=== PATIENT | male | born 1980 | race Caucasian/White ===

== ENCOUNTER → 2018-08-11 13:14 | Outpatient (CLI) | payer OTHER, SELFPAY | PROVIDERS: PCP Nurse Practitioner Family; Visit Provider Internal Medicine | DX: L97.519 Non-pressure chronic ulcer of other part of right foot with unspecified severity (principal); L97.512 Non-pressure chronic ulcer of other part of right foot with fat layer exposed; I96 Gangrene, not elsewhere classified | CPT/HCPCS: 11042; 99204; 99213 ==

== ENCOUNTER → 2018-08-16 09:55 | Outpatient (CLI) | payer OTHER, SELFPAY | PROVIDERS: PCP Nurse Practitioner Family; Visit Provider Family Medicine | DX: E11.621 Type 2 diabetes mellitus with foot ulcer (principal); E11.40 Type 2 diabetes mellitus with diabetic neuropathy, unspecified; L97.511 Non-pressure chronic ulcer of other part of right foot limited to breakdown of skin; I96 Gangrene, not elsewhere classified | CPT/HCPCS: 11043 ==

== ENCOUNTER → 2018-08-18 09:48 | Outpatient (CLI) | payer OTHER, SELFPAY | PROVIDERS: PCP Nurse Practitioner Family; Visit Provider Family Medicine | DX: E11.621 Type 2 diabetes mellitus with foot ulcer (principal); E11.40 Type 2 diabetes mellitus with diabetic neuropathy, unspecified; L97.511 Non-pressure chronic ulcer of other part of right foot limited to breakdown of skin; I96 Gangrene, not elsewhere classified | CPT/HCPCS: 99212; 99213 ==

== ENCOUNTER → 2018-08-21 13:55 | Outpatient (CLI) | payer OTHER, SELFPAY | PROVIDERS: PCP Nurse Practitioner Family; Visit Provider Family Medicine | DX: E11.621 Type 2 diabetes mellitus with foot ulcer (principal); E11.40 Type 2 diabetes mellitus with diabetic neuropathy, unspecified; L97.513 Non-pressure chronic ulcer of other part of right foot with necrosis of muscle | CPT/HCPCS: 11043 ==

== ENCOUNTER → 2018-08-25 09:47 | Outpatient (CLI) | payer OTHER, SELFPAY | PROVIDERS: PCP Nurse Practitioner Family; Visit Provider Family Medicine | DX: E11.621 Type 2 diabetes mellitus with foot ulcer (principal); L97.513 Non-pressure chronic ulcer of other part of right foot with necrosis of muscle | CPT/HCPCS: 99213; 99214 ==

== ENCOUNTER → 2018-08-28 13:32 | Outpatient (CLI) | payer OTHER, SELFPAY | PROVIDERS: PCP Nurse Practitioner Family; Visit Provider Family Medicine | DX: E11.621 Type 2 diabetes mellitus with foot ulcer (principal); L97.511 Non-pressure chronic ulcer of other part of right foot limited to breakdown of skin | CPT/HCPCS: 11042 ==

== ENCOUNTER → 2018-09-04 09:50 | Outpatient (CLI) | payer OTHER, SELFPAY | PROVIDERS: PCP Nurse Practitioner Family; Visit Provider Family Medicine | DX: E11.621 Type 2 diabetes mellitus with foot ulcer (principal); L97.515 Non-pressure chronic ulcer of other part of right foot with muscle involvement without evidence of necrosis | CPT/HCPCS: 11043 ==

== ENCOUNTER → 2018-09-11 09:47 | Outpatient (CLI) | payer OTHER, SELFPAY | PROVIDERS: PCP Nurse Practitioner Family; Visit Provider Family Medicine | DX: E11.621 Type 2 diabetes mellitus with foot ulcer (principal); L97.512 Non-pressure chronic ulcer of other part of right foot with fat layer exposed; L97.515 Non-pressure chronic ulcer of other part of right foot with muscle involvement without evidence of necrosis | CPT/HCPCS: 11042; 11043 ==

== ENCOUNTER → 2018-09-19 09:53 | Outpatient (CLI) | payer OTHER, SELFPAY | PROVIDERS: PCP Nurse Practitioner Family; Visit Provider Family Medicine | DX: E11.621 Type 2 diabetes mellitus with foot ulcer (principal); L97.515 Non-pressure chronic ulcer of other part of right foot with muscle involvement without evidence of necrosis | CPT/HCPCS: 11043 ==

== ENCOUNTER → 2018-09-26 09:32 | Outpatient (CLI) | payer OTHER, SELFPAY | PROVIDERS: PCP Nurse Practitioner Family; Visit Provider Family Medicine | DX: E11.621 Type 2 diabetes mellitus with foot ulcer (principal); L97.512 Non-pressure chronic ulcer of other part of right foot with fat layer exposed; M86.171 Other acute osteomyelitis, right ankle and foot | CPT/HCPCS: 11042 ==

== ENCOUNTER → 2018-09-26 10:23 | Outpatient (CLI) | payer OTHER, SELFPAY ==
--- NOTE | 2018-09-26 | DI.RAD.S_ITS ---
PROCEDURE: XR FOOT RT MIN 3V INDICATIONS: RIGHT BIG TOE PAIN TECHNIQUE: 3 views of the foot were acquired. COMPARISON: None. FINDINGS: Bones: No fractures or dislocations. First MTP joint degeneration. Plantar calcaneal and posterior calcaneal spurring. Laceration or ulceration involving the distal great toe soft tissues. The underlying cortex of the distal phalanx of the great toe is not well seen raising the possibility of lytic destruction. Scattered vascular calcifications. IMPRESSION: Soft tissue laceration versus ulceration involving the distal great toe, appearance of the underlying cortex of the distal phalanx of the great toe suggests lytic destruction suspicious for osteomyelitis.Please correlate clinically. If further evaluation is required, contrast enhanced MRI could be performed. Dictated by: Arsh Potts M.D. on 09/26/2018 at 12:19 Approved by: Arsh Potts M.D. on 09/26/2018 at 12:22
== END ==
PROVIDERS: PCP Nurse Practitioner Family; Visit Provider Family Medicine
DX: M79.674 Pain in right toe(s) (principal); E11.621 Type 2 diabetes mellitus with foot ulcer; L97.512 Non-pressure chronic ulcer of other part of right foot with fat layer exposed
CPT/HCPCS: 73630

== ENCOUNTER → 2018-10-17 09:44 | Outpatient (CLI) | payer OTHER, SELFPAY | PROVIDERS: PCP Nurse Practitioner Family; Visit Provider Family Medicine | DX: E11.621 Type 2 diabetes mellitus with foot ulcer (principal); L97.515 Non-pressure chronic ulcer of other part of right foot with muscle involvement without evidence of necrosis | CPT/HCPCS: 11042 ==

== ENCOUNTER → 2018-10-23 14:32 | Outpatient (CLI) | payer OTHER, SELFPAY | PROVIDERS: PCP Nurse Practitioner Family; Visit Provider Family Medicine | DX: E11.621 Type 2 diabetes mellitus with foot ulcer (principal); L97.516 Non-pressure chronic ulcer of other part of right foot with bone involvement without evidence of necrosis | CPT/HCPCS: 97597 ==

== ENCOUNTER → 2018-10-31 11:17 | Outpatient (CLI) | payer OTHER, SELFPAY ==
[2018-10-31 12:08] LABS: Add Manual Diff / Slide Review NO; Basophils Absolute Auto 100 /uL (0-100); Basophils Percent Auto 1.1 % (0-2); Eosinophils Absolute Auto 400 /uL (0-450); Eosinophils Percent Auto 5.4 % (2-4); Hematocrit 39.1 % (41-53); Hemoglobin 13.3 g/dL (13.5-17.5); Lymphocytes Absolute Auto 1600 /uL (1100-4500); Lymphocytes Percent Auto 22.6 % (25-40); Mean Corpuscular HGB Conc 34.1 % (30-36); Mean Corpuscular Hemoglobin 28.6 PG (26-34); Mean Corpuscular Volume 83.9 fL (80-100); Monocytes Absolute Auto 900 /uL (0-900); Monocytes Percent Auto 12.6 % (3-14); Neutrophils Absolute Auto 4200 /uL (1500-7000); Neutrophils Percent Auto 58.3 % (50-75); Platelet Count 301 X10^3/uL (150-400); Red Blood Cell Count 4.66 X10^6/uL (4.5-5.9); Red Cell Distribution Width 15.2 % (11.6-14.8); White Blood Cell Count 7.1 X10^3/uL (4.5-11.0)
[2018-10-31 12:24] LABS: Erythrocyte Sedimentation Rate 20 MM/HR (0-15)
[2018-10-31 12:38] LABS: C-Reactive Protein Quant 6.7 mg/dL (<1.0)
== END ==
PROVIDERS: Family Provider Nurse Practitioner Family; PCP Nurse Practitioner Family; Visit Provider Family Medicine
DX: E11.621 Type 2 diabetes mellitus with foot ulcer (principal); L97.511 Non-pressure chronic ulcer of other part of right foot limited to breakdown of skin; L53.9 Erythematous condition, unspecified
CPT/HCPCS: 11042; 36415; 85025; 85651; 86140; 87070; 87075; 87077; 87147; 87186; 87205

== ENCOUNTER → 2018-11-14 11:31 | Outpatient (CLI) | payer OTHER, SELFPAY | PROVIDERS: Family Provider Nurse Practitioner Family; PCP Nurse Practitioner Family; Visit Provider Family Medicine | DX: E11.621 Type 2 diabetes mellitus with foot ulcer (principal); L03.115 Cellulitis of right lower limb | CPT/HCPCS: 99213 ==

== ENCOUNTER → 2018-11-14 11:46 | Outpatient (CLI) | payer OTHER, SELFPAY ==
--- NOTE | 2018-11-14 | DI.RAD.S_ITS ---
PROCEDURE: XR FOOT RT MIN 3V INDICATIONS: R swollen foot TECHNIQUE: 2 views of the foot were acquired. COMPARISON: [facility], , XR FOOT RT MIN 3V, 09/26/2018, 10:22. FINDINGS: Bones: In the interval since the prior exam, there is an intra-articular fracture through the mid and base of the proximal first phalanx. Mild displacement is present at the fracture site as well as slight subluxed appearance at the first MTP joint. In addition, fractures/osteotomies are noted in the second through fifth distal metatarsals. Soft tissues: No tibiotalar joint effusion. Achilles tendon appears normal. Previous area of lucency within the distal fifth soft tissue persists without adjacent osseous erosion. IMPRESSION: First proximal phalanx intra-articular fracture. Distal second through fifth metatarsal fractures versus osteotomies. Clinical correlation is recommended. Dictated by: Pili Moreno M.D. on 11/14/2018 at 13:30 Approved by: Pili Moreno M.D. on 11/14/2018 at 13:35
[2018-11-14 12:11] LABS: Add Manual Diff / Slide Review NO; Basophils Absolute Auto 100 /uL (0-100); Eosinophils Absolute Auto 200 /uL (0-450); Eosinophils Percent Auto 2.7 % (2-4); Hematocrit 44.3 % (41-53); Hemoglobin 14.8 g/dL (13.5-17.5); Lymphocytes Absolute Auto 1700 /uL (1100-4500); Lymphocytes Percent Auto 22.9 % (25-40); Mean Corpuscular HGB Conc 33.3 % (30-36); Mean Corpuscular Hemoglobin 28.1 PG (26-34); Mean Corpuscular Volume 84.4 fL (80-100); Monocytes Absolute Auto 600 /uL (0-900); Monocytes Percent Auto 7.8 % (3-14); Neutrophils Absolute Auto 5000 /uL (1500-7000); Neutrophils Percent Auto 65.6 % (50-75); Platelet Count 324 X10^3/uL (150-400); Red Blood Cell Count 5.25 X10^6/uL (4.5-5.9); Red Cell Distribution Width 15.1 % (11.6-14.8); White Blood Cell Count 7.6 X10^3/uL (4.5-11.0)
[2018-11-14 12:38] LABS: Erythrocyte Sedimentation Rate 7 MM/HR (0-15)
[2018-11-14 12:46] LABS: C-Reactive Protein Quant 1.2 mg/dL (<1.0)
== END ==
PROVIDERS: Family Provider Nurse Practitioner Family; PCP Nurse Practitioner Family; Visit Provider Family Medicine
DX: E11.621 Type 2 diabetes mellitus with foot ulcer (principal); L97.514 Non-pressure chronic ulcer of other part of right foot with necrosis of bone; S92.411A Displaced fracture of proximal phalanx of right great toe, initial encounter for closed fracture
CPT/HCPCS: 36415; 73630; 85025; 85651; 86140

== ENCOUNTER → 2018-11-29 09:50 | Outpatient (CLI) | payer OTHER, SELFPAY | PROVIDERS: Family Provider Nurse Practitioner Family; PCP Nurse Practitioner Family; Visit Provider Family Medicine | DX: M84.477A Pathological fracture, right toe(s), initial encounter for fracture (principal); E11.9 Type 2 diabetes mellitus without complications | CPT/HCPCS: 29445; 99213 ==

== ENCOUNTER → 2018-12-05 10:30 | Outpatient (CLI) | payer OTHER, SELFPAY | PROVIDERS: Family Provider Nurse Practitioner Family; PCP Nurse Practitioner Family; Visit Provider Family Medicine | DX: E11.621 Type 2 diabetes mellitus with foot ulcer (principal); L97.514 Non-pressure chronic ulcer of other part of right foot with necrosis of bone; M84.477A Pathological fracture, right toe(s), initial encounter for fracture | CPT/HCPCS: 99212 ==

== ENCOUNTER → 2019-11-27 08:57 | Outpatient (CLI) | payer OTHER, SELFPAY | PROVIDERS: Family Provider Nurse Practitioner Family; PCP Nurse Practitioner Family; Referring Provider Nurse Practitioner Family; Visit Provider Family Medicine | DX: E11.621 Type 2 diabetes mellitus with foot ulcer (principal); L97.511 Non-pressure chronic ulcer of other part of right foot limited to breakdown of skin; L08.9 Local infection of the skin and subcutaneous tissue, unspecified; A52.16 Charcot's arthropathy (tabetic); E11.40 Type 2 diabetes mellitus with diabetic neuropathy, unspecified; M86.9 Osteomyelitis, unspecified | CPT/HCPCS: 11042; 99212; 99214 ==

== ENCOUNTER → 2019-12-18 09:33 | Outpatient (CLI) | payer OTHER, SELFPAY | PROVIDERS: Family Provider Nurse Practitioner Family; PCP Nurse Practitioner Family; Referring Provider Nurse Practitioner Family; Visit Provider Family Medicine | DX: E11.621 Type 2 diabetes mellitus with foot ulcer (principal); L97.513 Non-pressure chronic ulcer of other part of right foot with necrosis of muscle; A52.16 Charcot's arthropathy (tabetic); R60.0 Localized edema; M19.071 Primary osteoarthritis, right ankle and foot; M77.31 Calcaneal spur, right foot; M85.871 Other specified disorders of bone density and structure, right ankle and foot | CPT/HCPCS: 11043; 73630; 99213 ==

== ENCOUNTER → 2019-12-18 10:14 | Outpatient (CLI) | payer OTHER, SELFPAY ==
--- NOTE | 2019-12-18 | DI.RAD.S_ITS ---
PROCEDURE: XR FOOT RT MIN 3V INDICATIONS: Type 2 diabetes mellitus with foot ulcer TECHNIQUE: 3 views of the foot were acquired. COMPARISON: [facility], CR, XR FOOT 3+ VIEWS RIGHT, 01/18/2019, 16:24. [facility], CR, XR FOOT RT MIN 3V, 11/14/2018, 11:48. FINDINGS: Bones: No definite fracture seen. Plantar and posterior calcaneal spurring. There is diffuse osteopenia, and increasing ill-defined lucency at the second, third, fourth and fifth metatarsal heads. Possible overlying cortical loss is noted Moderate first MTP degeneration. Soft tissues: Numerous vascular calcifications are seen. IMPRESSION: Increasing ill-defined lucent appearance at the second-fifth metatarsal heads with possible overlying cortical loss suggestive of osteomyelitis although severe regional osteopenia could have a similar appearance. Please correlate clinically and for further evaluation a contrast enhanced MRI could be performed. Dictated by: Arsh Potts M.D. on 12/18/2019 at 12:54 Approved by: Arsh Potts M.D. on 12/18/2019 at 12:58
== END ==
PROVIDERS: Family Provider Nurse Practitioner Family; PCP Nurse Practitioner Family; Referring Provider Family Medicine; Visit Provider Family Medicine
DX: E11.621 Type 2 diabetes mellitus with foot ulcer (principal); L97.519 Non-pressure chronic ulcer of other part of right foot with unspecified severity; M77.31 Calcaneal spur, right foot; M19.071 Primary osteoarthritis, right ankle and foot; M85.871 Other specified disorders of bone density and structure, right ankle and foot
CPT/HCPCS: 73630

== ENCOUNTER → 2020-01-03 09:36 | Outpatient (CLI) | payer OTHER, SELFPAY | PROVIDERS: Family Provider Nurse Practitioner Family; PCP Nurse Practitioner Family; Referring Provider Nurse Practitioner Family; Visit Provider Family Medicine | DX: E11.621 Type 2 diabetes mellitus with foot ulcer (principal); L97.513 Non-pressure chronic ulcer of other part of right foot with necrosis of muscle; A52.16 Charcot's arthropathy (tabetic) | CPT/HCPCS: 99213 ==

== ENCOUNTER → 2020-01-10 09:35 | Outpatient (CLI) | payer OTHER, SELFPAY | PROVIDERS: Family Provider Nurse Practitioner Family; PCP Nurse Practitioner Family; Referring Provider Nurse Practitioner Family; Visit Provider Family Medicine | DX: E11.621 Type 2 diabetes mellitus with foot ulcer (principal); L97.513 Non-pressure chronic ulcer of other part of right foot with necrosis of muscle; A52.16 Charcot's arthropathy (tabetic) | CPT/HCPCS: 11043; 87070; 87075; 87077; 87147; 87186; 87205; 99213 ==

== ENCOUNTER → 2020-01-24 10:35 | Outpatient (CLI) | payer OTHER, SELFPAY | PROVIDERS: Family Provider Nurse Practitioner Family; PCP Nurse Practitioner Family; Referring Provider Nurse Practitioner Family; Visit Provider Family Medicine | DX: E11.621 Type 2 diabetes mellitus with foot ulcer (principal); L97.515 Non-pressure chronic ulcer of other part of right foot with muscle involvement without evidence of necrosis; A52.16 Charcot's arthropathy (tabetic) | CPT/HCPCS: 99213; 99214 ==

== ENCOUNTER → 2020-01-24 11:32 | Outpatient (CLI) | payer OTHER, SELFPAY ==
--- NOTE | 2020-01-24 | DI.MRI.S_ITS ---
PROCEDURE: MR FOOT RT WO/W CON INDICATIONS: Type 2 diabetes mellitus with foot ulcer TECHNIQUE: Noncontrast sagittal T1 spin echo and T2 fast spin echo with fat saturation, long-axis T1 spin echo and T2 fast spin echo with fat saturation; short-axis T1 spin echo, proton density fast spin echo, and T2 fast spin echo with fat saturation through the forefoot. Post-contrast short axis, long axis, and sagittal T1 spin echo with fat saturation through the forefoot. COMPARISON: [facility], CR, XR FOOT RT MIN 3V, 12/18/2019, 10:30. FINDINGS: Image quality: Excellent. Soft tissue swelling at the lateral aspect of the forefoot at the level of the fifth metatarsal head. Overlying skin irregularity presumably reflecting ulceration. There is signal changes present within the fifth metatarsal head with loss of the normal fat signal intensity on T1 weighted images, T2 hyperintensity, and surrounding enhancement. There is cortical loss, and adjacent soft tissue edema. No definite loculated, rim enhancing abscess is seen although subcutaneous edema and superficial fascial fluid. Poorly defined marrow signal changes present within the second-fourth metatarsal heads, with some loss of the normal marrow fat signal intensity on T1 weighted pulse sequences. Technically, cannot exclude additional areas of infection of unknown acuity. Visualized flexor and extensor tendons appear intact, without tenosynovitis. Numerous vascular callus cages are seen. Plantar and posterior calcaneal spurs. IMPRESSION: Prominent lateral soft tissue edema and cellulitis, at the lateral aspect of the fifth metatarsal head. Erosive and lytic changes suggesting osteomyelitis involving the lateral aspect of the fifth metatarsal head. Additional marrow signal changes to a lesser extent involving the second-fourth metatarsal heads raising the possibility of additional smaller areas of infection and/or other erosive arthropathy, although technically unknown acuity. Dictated by: Arsh Potts M.D. on 01/24/2020 at 13:08 Approved by: Arsh Potts M.D. on 01/24/2020 at 13:22
[2020-01-24 13:29] LABS: Add Manual Diff / Slide Review NO; Basophils Absolute Auto 100 /uL (0-100); Basophils Percent Auto 1.1 % (0-2); Eosinophils Absolute Auto 300 /uL (0-450); Eosinophils Percent Auto 3.5 % (2-4); Hematocrit 43.5 % (41-53); Hemoglobin 14.4 g/dL (13.5-17.5); Lymphocytes Absolute Auto 1800 /uL (1100-4500); Lymphocytes Percent Auto 19.3 % (25-40); Mean Corpuscular Hemoglobin 28.4 PG (26-34); Mean Corpuscular Volume 86.2 fL (80-100); Monocytes Absolute Auto 700 /uL (0-900); Monocytes Percent Auto 7.4 % (3-14); Neutrophils Absolute Auto 6300 /uL (1500-7000); Neutrophils Percent Auto 68.7 % (50-75); Platelet Count 327 X10^3/uL (150-400); Red Blood Cell Count 5.05 X10^6/uL (4.5-5.9); Red Cell Distribution Width 13.6 % (11.6-14.8); White Blood Cell Count 9.2 X10^3/uL (4.5-11.0)
[2020-01-24 13:49] LABS: Alanine Aminotransferase 11 IU/L (<50); Albumin 4.2 g/dL (3.5-5.0); Albumin Globulin Ratio 1.1 (1.0-2.8); Alkaline Phosphatase 117 U/L (38-126); Aspartate Aminotransferase 29 IU/L (17-59); Bilirubin Total 0.3 mg/dL (0.2-1.3); Blood Urea Nitrogen 14 mg/dL (9-20); C-Reactive Protein Quant 0.8 mg/dL (<1.0); Calcium 9.2 mg/dL (8.4-10.2); Carbon Dioxide 30 mmol/L (22-32); Chloride 99 mmol/L (98-107); Estimated Glomerular Filt Rate > 60.0 mL/min (>60); Globulin 3.8 g/dL (1.7-4.1); Glucose 308 mg/dL (70-100); HEMOLYSIS 15 (0-50); Sodium 136 mmol/L (137-145)
[2020-01-24 13:51] LABS: Erythrocyte Sedimentation Rate 11 MM/HR (0-15)
== END ==
PROVIDERS: Family Provider Nurse Practitioner Family; PCP Nurse Practitioner Family; Referring Provider Family Medicine; Visit Provider Family Medicine
DX: E11.621 Type 2 diabetes mellitus with foot ulcer (principal); L97.515 Non-pressure chronic ulcer of other part of right foot with muscle involvement without evidence of necrosis
CPT/HCPCS: 36415; 73720; 80053; 85025; 85651; 86140

== ENCOUNTER → 2020-02-08 13:07 | Outpatient (CLI) | payer OTHER, SELFPAY ==
[2020-02-08 16:35] LABS: Add Manual Diff / Slide Review NO; Basophils Absolute Auto 100 /uL (0-100); Basophils Percent Auto 0.9 % (0-2); Eosinophils Absolute Auto 200 /uL (0-450); Eosinophils Percent Auto 2.7 % (2-4); Hematocrit 46.3 % (41-53); Hemoglobin 15.5 g/dL (13.5-17.5); Lymphocytes Absolute Auto 1800 /uL (1100-4500); Lymphocytes Percent Auto 22.2 % (25-40); Mean Corpuscular HGB Conc 33.5 % (30-36); Mean Corpuscular Hemoglobin 28.6 PG (26-34); Mean Corpuscular Volume 85.3 fL (80-100); Monocytes Absolute Auto 600 /uL (0-900); Monocytes Percent Auto 7.1 % (3-14); Neutrophils Absolute Auto 5400 /uL (1500-7000); Neutrophils Percent Auto 67.1 % (50-75); Platelet Count 328 X10^3/uL (150-400); Red Blood Cell Count 5.43 X10^6/uL (4.5-5.9); Red Cell Distribution Width 13.6 % (11.6-14.8); White Blood Cell Count 8.1 X10^3/uL (4.5-11.0)
[2020-02-08 17:09] LABS: Alanine Aminotransferase 11 IU/L (<50); Albumin 4.7 g/dL (3.5-5.0); Albumin Globulin Ratio 1.2 (1.0-2.8); Alkaline Phosphatase 92 U/L (38-126); Aspartate Aminotransferase 29 IU/L (17-59); BUN Creatinine Ratio 14.7 (6-22); Bilirubin Total 0.5 mg/dL (0.2-1.3); Blood Urea Nitrogen 10 mg/dL (9-20); C-Reactive Protein Quant 0.7 mg/dL (<1.0); Carbon Dioxide 28 mmol/L (22-32); Chloride 100 mmol/L (98-107); Estimated Glomerular Filt Rate > 60.0 mL/min (>60); Globulin 3.8 g/dL (1.7-4.1); Glucose 145 mg/dL (70-100); HEMOLYSIS < 15 (0-50); Potassium 4.2 mmol/L (3.4-5.1); Sodium 140 mmol/L (137-145); Total Protein 8.5 g/dL (6.3-8.2)
[2020-02-08 17:15] LABS: Erythrocyte Sedimentation Rate 9 MM/HR (0-15)
== END ==
PROVIDERS: Family Provider Nurse Practitioner Family; PCP Nurse Practitioner Family; Referring Provider Nurse Practitioner Family; Visit Provider Family Medicine
DX: E11.621 Type 2 diabetes mellitus with foot ulcer (principal); L97.514 Non-pressure chronic ulcer of other part of right foot with necrosis of bone; A52.16 Charcot's arthropathy (tabetic); B95.61 Methicillin susceptible Staphylococcus aureus infection as the cause of diseases classified elsewhere; M86.171 Other acute osteomyelitis, right ankle and foot; L03.115 Cellulitis of right lower limb
CPT/HCPCS: 11044; 36415; 80053; 85025; 85651; 86140; 87070; 87075; 87077; 87147; 87186; 87205; 99214

== ENCOUNTER → 2020-02-14 10:41 | Outpatient (CLI) | payer OTHER, SELFPAY | PROVIDERS: Family Provider Nurse Practitioner Family; PCP Nurse Practitioner Family; Referring Provider Nurse Practitioner Family; Visit Provider Family Medicine | DX: E11.621 Type 2 diabetes mellitus with foot ulcer (principal); M86.9 Osteomyelitis, unspecified; L97.513 Non-pressure chronic ulcer of other part of right foot with necrosis of muscle | CPT/HCPCS: 11044; 87070; 87075; 87077; 87147; 87186; 87205 ==

== ENCOUNTER → 2020-03-11 16:35 | Outpatient (CLI) | payer OTHER, SELFPAY | PROVIDERS: Family Provider Nurse Practitioner Family; PCP Nurse Practitioner Family; Referring Provider Nurse Practitioner Family; Visit Provider Family Medicine | DX: E11.621 Type 2 diabetes mellitus with foot ulcer (principal); L97.514 Non-pressure chronic ulcer of other part of right foot with necrosis of bone; A52.16 Charcot's arthropathy (tabetic); B95.61 Methicillin susceptible Staphylococcus aureus infection as the cause of diseases classified elsewhere; M86.371 Chronic multifocal osteomyelitis, right ankle and foot | CPT/HCPCS: 11044; 99214 ==

== ENCOUNTER → 2020-03-18 14:31 | Outpatient (CLI) | payer OTHER, SELFPAY ==
[2020-03-18 17:34] LABS: Add Manual Diff / Slide Review NO; Basophils Absolute Auto 100 /uL (0-100); Basophils Percent Auto 0.8 % (0-2); Eosinophils Absolute Auto 300 /uL (0-450); Eosinophils Percent Auto 3.3 % (2-4); Hematocrit 43.7 % (41-53); Hemoglobin 14.6 g/dL (13.5-17.5); Lymphocytes Absolute Auto 1700 /uL (1100-4500); Mean Corpuscular HGB Conc 33.4 % (30-36); Mean Corpuscular Hemoglobin 28.7 PG (26-34); Mean Corpuscular Volume 85.8 fL (80-100); Monocytes Absolute Auto 600 /uL (0-900); Monocytes Percent Auto 6.8 % (3-14); Neutrophils Absolute Auto 6300 /uL (1500-7000); Neutrophils Percent Auto 70.1 % (50-75); Platelet Count 302 X10^3/uL (150-400); Red Blood Cell Count 5.09 X10^6/uL (4.5-5.9); Red Cell Distribution Width 14.3 % (11.6-14.8)
[2020-03-18 17:50] LABS: Alanine Aminotransferase 22 IU/L (<50); Albumin 4.4 g/dL (3.5-5.0); Albumin Globulin Ratio 1.2 (1.0-2.8); Alkaline Phosphatase 113 U/L (38-126); Aspartate Aminotransferase 46 IU/L (17-59); BUN Creatinine Ratio 29.5 (6-22); Bilirubin Total 0.4 mg/dL (0.2-1.3); Blood Urea Nitrogen 18 mg/dL (9-20); C-Reactive Protein Quant 0.5 mg/dL (<1.0); Calcium 9.5 mg/dL (8.4-10.2); Carbon Dioxide 29 mmol/L (22-32); Chloride 100 mmol/L (98-107); Estimated Glomerular Filt Rate > 60.0 mL/min (>60); Globulin 3.7 g/dL (1.7-4.1); Glucose 154 mg/dL (70-100); HEMOLYSIS < 15 (0-50); Potassium 4.2 mmol/L (3.4-5.1); Sodium 136 mmol/L (137-145); Total Protein 8.1 g/dL (6.3-8.2)
[2020-03-18 18:23] LABS: Erythrocyte Sedimentation Rate 7 MM/HR (0-15)
== END ==
PROVIDERS: Family Provider Nurse Practitioner Family; PCP Nurse Practitioner Family; Referring Provider Nurse Practitioner Family; Visit Provider Family Medicine
DX: E11.621 Type 2 diabetes mellitus with foot ulcer (principal); L97.516 Non-pressure chronic ulcer of other part of right foot with bone involvement without evidence of necrosis; A52.16 Charcot's arthropathy (tabetic); B95.61 Methicillin susceptible Staphylococcus aureus infection as the cause of diseases classified elsewhere; M86.171 Other acute osteomyelitis, right ankle and foot; Z79.2 Long term (current) use of antibiotics
CPT/HCPCS: 11042; 36415; 80053; 85025; 85651; 86140; 99213

== ENCOUNTER → 2020-04-01 10:53 | Outpatient (CLI) | payer OTHER, SELFPAY | PROVIDERS: Family Provider Nurse Practitioner Family; PCP Nurse Practitioner Family; Referring Provider Nurse Practitioner Family; Visit Provider Family Medicine | DX: E11.621 Type 2 diabetes mellitus with foot ulcer (principal); L97.514 Non-pressure chronic ulcer of other part of right foot with necrosis of bone; A52.16 Charcot's arthropathy (tabetic); B95.61 Methicillin susceptible Staphylococcus aureus infection as the cause of diseases classified elsewhere; M86.171 Other acute osteomyelitis, right ankle and foot; Z79.2 Long term (current) use of antibiotics | CPT/HCPCS: 11042; 87070; 87075; 87077; 87147; 87186; 87205; 99212 ==

== ENCOUNTER → 2020-04-08 10:24 | Outpatient (CLI) | payer OTHER, SELFPAY | PROVIDERS: Family Provider Nurse Practitioner Family; PCP Nurse Practitioner Family; Referring Provider Nurse Practitioner Family; Visit Provider Family Medicine | DX: E11.621 Type 2 diabetes mellitus with foot ulcer (principal); L97.514 Non-pressure chronic ulcer of other part of right foot with necrosis of bone; A52.16 Charcot's arthropathy (tabetic); B95.61 Methicillin susceptible Staphylococcus aureus infection as the cause of diseases classified elsewhere; M86.171 Other acute osteomyelitis, right ankle and foot; Z79.2 Long term (current) use of antibiotics | CPT/HCPCS: 11042; 87070; 87075; 87205; 99212 ==

== ENCOUNTER → 2020-04-16 10:19 | Outpatient (CLI) | payer OTHER, SELFPAY | PROVIDERS: Family Provider Nurse Practitioner Family; PCP Nurse Practitioner Family; Referring Provider Nurse Practitioner Family; Visit Provider Family Medicine | DX: E11.621 Type 2 diabetes mellitus with foot ulcer (principal); L97.514 Non-pressure chronic ulcer of other part of right foot with necrosis of bone; A52.16 Charcot's arthropathy (tabetic); B95.61 Methicillin susceptible Staphylococcus aureus infection as the cause of diseases classified elsewhere; M86.171 Other acute osteomyelitis, right ankle and foot; Z79.2 Long term (current) use of antibiotics | CPT/HCPCS: 11042 ==

== ENCOUNTER → 2020-04-23 10:34 | Outpatient (CLI) | payer OTHER, SELFPAY | PROVIDERS: Family Provider Nurse Practitioner Family; PCP Nurse Practitioner Family; Referring Provider Nurse Practitioner Family; Visit Provider Family Medicine | DX: E11.621 Type 2 diabetes mellitus with foot ulcer (principal); L97.514 Non-pressure chronic ulcer of other part of right foot with necrosis of bone; A52.16 Charcot's arthropathy (tabetic); B95.61 Methicillin susceptible Staphylococcus aureus infection as the cause of diseases classified elsewhere; M86.171 Other acute osteomyelitis, right ankle and foot; Z79.2 Long term (current) use of antibiotics | CPT/HCPCS: 11042; 99213 ==

== ENCOUNTER → 2020-04-30 08:28 | Outpatient (CLI) | payer OTHER, SELFPAY ==
--- NOTE | 2020-04-30 | DI.RAD.S_ITS ---
PROCEDURE: FL GUIDED PICC PLACEMENT INDICATIONS: Type 2 diabetes mellitus with foot ulcer COMPARISON: None. FINDINGS: PICC was placed by the intravenous therapy team from the left side. Fluoroscopic spot film demonstrates the tip of PICC projecting to the area of distal SVC. IMPRESSION: Tip of PICC projects to the area of distal SVC. Dictated by: Chely Joseph MD, PhD on 04/30/2020 at 12:27 Approved by: Chely Joseph MD, PhD on 04/30/2020 at 12:27
== END ==
PROVIDERS: Family Provider Nurse Practitioner Family; PCP Nurse Practitioner Family; Referring Provider Family Medicine; Visit Provider Family Medicine
DX: Z45.2 Encounter for adjustment and management of vascular access device (principal); E11.621 Type 2 diabetes mellitus with foot ulcer; L97.814 Non-pressure chronic ulcer of other part of right lower leg with necrosis of bone
CPT/HCPCS: 36573

== ENCOUNTER → 2020-04-30 11:30 | Outpatient (CLI) | payer OTHER, SELFPAY | PROVIDERS: Family Provider Nurse Practitioner Family; PCP Nurse Practitioner Family; Referring Provider Nurse Practitioner Family; Visit Provider Family Medicine | DX: E11.621 Type 2 diabetes mellitus with foot ulcer (principal); L97.514 Non-pressure chronic ulcer of other part of right foot with necrosis of bone; A52.16 Charcot's arthropathy (tabetic); B95.61 Methicillin susceptible Staphylococcus aureus infection as the cause of diseases classified elsewhere; M86.171 Other acute osteomyelitis, right ankle and foot; Z79.2 Long term (current) use of antibiotics; Z45.2 Encounter for adjustment and management of vascular access device; L97.814 Non-pressure chronic ulcer of other part of right lower leg with necrosis of bone | CPT/HCPCS: 11042; 36573; 99212 ==

== ENCOUNTER → 2020-05-25 10:22 | Outpatient (CLI) | payer OTHER, SELFPAY ==
[2020-05-26 18:10] LABS: COVID19 Sendout Not Detected (Not Detect)
== END ==
PROVIDERS: PCP Nurse Practitioner Family; Visit Provider Physician Assistant
DX: Z11.59 Encounter for screening for other viral diseases (principal)
CPT/HCPCS: 87635

== ENCOUNTER 2020-05-28 07:46 | Day surgery (SDC) | payer OTHER, SELFPAY ==
[2020-05-21 07:38] VITALS: BMI 34.7
[2020-05-28] VITALS (8 sets, daily range): BP systolic 83–127; BP diastolic 44–75; PULSE 66–72; RESP 15–16; TEMP 36.2–36.6; O2SAT 97–100; BMI 34.7
--- NOTE | 2020-05-28 | PATH_ITS ---
[facility] Accession Number: [id number] . 01 Material submitted: . bone - RIGHT 5TH METATARSAL BONE . 01 Clinical history: . A: BONE 5TH METATARSAL, RIGHT...HX OF OSTEOMYLITIS . 02 Diagnosis: Bone, Right Foot, Fifth Metatarsal Bone: Reactive bone with small, patchy foci of acute and chronic osteomyelitis. Negative for malignancy. MRV 05/30/2020 1203 Local . 02 Electronically signed: . Annie Whitehead MD, Pathologist NPI- [id number] . 01 Gross description: . Received in formalin and labeled with bone fifth metatarsal right foot, is one piece of ledesma hard bone measuring 1.3 x 1.1 x 0.7 cm. The bone is bisected and entirely submitted in cassette A1. Prior to processing the bone will be placed in decal solution for one hour. ([id number]) /QBJ 05/29/2020 1011 Local . 02 Pathologist provided ICD-10: E08.621 . 02 CPT . 493448, [id number] Performed at: 01 [facility] [address], [place], [place] [id number] MD Nakul Wu MD Phone: [phone] Performed at: [facility] [address] [place], [place] [id number] MD Antonette Ochoa MD Phone: [phone]
--- NOTE | 2020-05-28 08:09 | P.HP_ITS ---
History of Present Illness History of Present Illness Date Patient Seen: 05/28/20 Time Patient Seen: 08:10 Chief complaint: [id number] Narrative: Patient is a 39-year-old diabetic male with a history of a right foot lateral border ulceration and 5th metatarsal osteomyelitis. Had recurrent and nonhealing ulcers in the area. He is started on IV antibiotics with [facility]. His ulceration has actually killed but he continues to have a prominence and osteomyelitis and at risk for recurrent ulceration in the area. He is indicated for partial 5th metatarsal excision and bone biopsy. He endorses neuropathy. He has had a history of multiple fractures as well as Charcot. Patient History Medical History Charcot's joint of foot (Acute) Diabetes mellitus, type II (Acute) Diabetic foot ulcer with osteomyelitis (Acute) Diabetic foot ulcers (Acute) Neuropathy (Acute) Surgical History S/P PICC central line placement (Acute) Family & Social History Social History: Works as a [employer] Home Medications and Allergies Home Medications Medication Instructions Recorded Confirmed Type calcium carbonate [Calcium 600] 1,200 mg PO DAILY 05/21/20 05/28/20 History cholecalciferol (vitamin D3) 25 mcg PO DAILY 05/21/20 05/28/20 History [Vitamin D3] flaxseed oil 1,000 mg PO DAILY 05/21/20 05/28/20 History garlic 1,000 mg PO DAILY 05/21/20 05/28/20 History metformin 1,000 mg PO BID 05/21/20 05/28/20 History turmeric 600 mg PO DAILY 05/21/20 05/28/20 History hydrocodone-acetaminophen [Ayr] 1 tab PO Q4H PRN #30 tab 05/28/20 Rx Allergies Allergy/AdvReac Type Severity Reaction Status Date / Time No Known Drug Allergies Allergy Verified 05/28/20 08:09 Review of Systems Review of Systems ROS: Yes All systems reviewed with the patient and are negative except as otherwise documented Exam Narrative Exam Narrative: General exam alert oriented male in no acute distress. Normocephalic atraumatic Respiratory exam unlabored on room air lungs clear to auscultation bilaterally Heart regular rate and rhythm Abdomen soft nontender PICC line left upper extremity Musculoskeletal exam moving bilateral upper extremities full range of motion no tenderness to palpation. No erythema redness Left lower extremity full range of motion calf is soft. Intact dorsiflexion plantar flexion. No erythema no swelling or redness Right lower extremity shows no erythema redness. There is a healed ulceration very thick callus at the lateral aspect of the 5th metatarsal head. Previous erythema has resolved and 2nd dorsal ulceration has healed. His bony prominence at the 5th metatarsal head and lateral border of the foot with pre ulcerative lesion (previous ulcer that is healed with thick callus and continued prominence). Brisk capillary refill. Palpable pulses. Soft calf Assessment & Plan Assessment and plan (1) Diabetic foot ulcer with osteomyelitis: Problem details: Right 5th toe Status: Acute Assessment & Plan narrative: Right 5th metatarsal osteomyelitis. The ulcers have healed well as been on antibiotics however with persistence of prominence and callus and bony deformity and osteomyelitis risk for recurrence once antibiotics are discontinued is high. Patient has been indicated for partial 5th metatarsal excision and bone biopsy to reduce the risk of recurrence. I do not believe we need to take his toe at this time as the previous ulcerations are healed. This was a chronic dislocation however be a nonfunctional digit but he would like to retain it for cosmetic purposes. If he does have recurrence of infection med is unable to be resolved may require additional surgeries in the future. The patient understands this. He will be continued on his IV antibiotics following surgery. Discussed sutures remain in place minimum 2 weeks. He will be weightbear as tolerated postop shoe afterwards. The risks and benefits of the procedure have been discussed with the patient even opportunity to ask questions. The risks of surgery include but are not limited to infection, need for additional surgeries or amputation, persistence of pain, damage to nerves and blood vessels, posttraumatic arthritis, DVT, PE, cardiopulmonary complications and . The patient expressed a thorough understanding of the risks and benefits of surgery and has elected to proceed. Consent was signed. COVID-19 COVID-19 status: Negative Time Spent With Patient Time with patient: less than 15 minutes
[2020-05-28] MEDS: LACTATED RINGERS 1,000 ML 42 ML IV (08:10)
--- NOTE | 2020-05-28 08:39 | SUR.OPER ---
Supine on padded OR bed, head on pillow, arms secured on padded arm boards at <90 degrees abduction, legs uncrossed, safety belt at thigh, tape over blanket over lower legs.
[2020-05-28] MEDS: BUPIVACAINE 0.25% W/ EPI 30 ML VIAL INJ (09:19)
--- NOTE | 2020-05-28 09:28 | SUR.OPER ---
MINI PARISA TIME .14
--- NOTE | 2020-05-28 10:13 | PM.OP.1 ---
Operative Date/Time/Diagnoses Date of procedure: 05/28/20 Time of procedure: 10:13 Pre-op diagnosis: Right foot osteomyelitis M88.471 Diabetic foot ulcer E08.621 Post-op diagnosis: same Procedure & Clinicians Procedure: Partial excision 5th metatarsal, right CPT code 12547 Same procedure as scheduled: Yes Indications: Patient is a 39-year-old male with a right diabetic foot ulceration and osteomyelitis of his 5th metatarsal. He is indicated for partial 5th metatarsal excision bone biopsy. He is on IV antibiotics [facility]. He has noted good healing of his 2 ulcerations over the last 6 weeks while on antibiotics however he has a significant bony prominence and callus with MRI evidence of osteomyelitis of the 5th metatarsal and is at high risk for recurrence. The risks and benefits of the procedure have been discussed with the patient even opportunity to ask questions. The risks of surgery include but are not limited to infection, need for additional surgery, persistence of pain, damage to nerves and blood vessels, posttraumatic arthritis, DVT, PE, cardiopulmonary complications and . The patient expressed a thorough understanding of the risks and benefits of surgery and has elected to proceed. Consent was signed. Surgeon: Nae Willis Click Yes if Unassisted: Yes Anesthesia Type: General and Local Operative Notes Findings: Partial 5th metatarsal excision. Metatarsal head with deformity and erosive changes consistent with history of osteomyelitis. Closure Type: primary Specimen(s): other (Bone sent for pathology and culture) Estimated Blood Loss (mL): 5 Tourniquet time (min): 29 Procedure in detail: Patient was seen the preoperative area the site of surgery marked informed consent performed. Patient was brought back to the operating by the anesthesia team positioned supine. All bony prominences well padded. General anesthetic was administered. A well-padded thigh tourniquet was placed on the right lower extremity. Ipsilateral thigh bump. Formal time-out procedure was performed confirming the patient's side and site of surgery. The patient was on scheduled antibiotics. Attention was turned to the right lower extremity. [place] was used for exsanguination. The tourniquet was raised to 250 mm of mercury and stayed there for 29 minutes. Attention was turned to the lateral border of the foot. There was a thick callus at the area of the healed ulceration at the 5th metatarsal head and a healed more dorsal ulceration area as well. C-arm was brought in and the metatarsal resection areas were marked on the skin. Skin incision was then made down to skin subcutaneous tissue directly to the level of the 5th metatarsal along the lateral border. This was dissected out. Baby Homans were placed on either side of the bone. The tibia saw was used to resect the 5th metatarsal base. Care was taken to plane this to avoid any plantar or lateral prominences. A rasp was used to smooth the edges. The distal 5th metatarsal was excised and a divided and sent for pathology and culture. No gross purulence was encountered. There was thickened scar tissue around the area of the 1st MTP and the metatarsal head. Bone was nice and hard and appeared normal at the level of resection. Wound was thoroughly irrigated with saline. Following this tourniquet was released hemostasis was achieved. A small amount of bone wax was placed over the 5th metatarsal resection area in the wound was closed in layers with 2 0 PDS and 2 O and 3 0 nylon in the skin. A 20 cc of 0.25% Marcaine was injected for local anesthetic. A sterile dressing was Xeroform gauze Kerlix and Jerrell wrap was placed. The patient was placed into a postoperative shoe. And taken to the recovery room in good condition. There no immediate complications from this procedure. All counts were correct. Complications: none Post-operative Condition: stable Disposition: PACU Plan for aftercare: Weightbear as tolerated in the postop shoe. Keep dressing clean dry and intact. May change if saturated. No showers or soaking of the incision. Sutures were remain a minimum of 3 weeks. Patient will continue on his IV antibiotics per [facility].
--- NOTE | 2020-05-28 10:27 | SUR.PHASEI ---
Dr Willis by to talk with pt and states to give pt his daily dose of Ertapentem antibiotic that he has brought in with him, ok to start at 1030. Pt gives his antibiotic to himself everyday and assisted with this today. Started at 1030 through iv line attached to his picc line. VSS. Will transfer to pacu 2
--- NOTE | 2020-05-28 11:23 | SUR.OPER ---
UNOPERATIVE LEG SECURED TO TABLE WITH TAPE, BUMP UNDER RIGHT HIP
--- NOTE | 2020-05-28 11:24 | SUR.OPER ---
CULTURES SENT FOR ANEROBIC, AEROBIC, GRAM STAIN, FUNGAL AND ACID FAST ON RIGHT 5 TH METATARSAL
== END 2020-05-28 11:25 | disposition home or self-care (01) ==
PROVIDERS: PCP Nurse Practitioner Family; Referring Provider Nurse Practitioner Family; Visit Provider Orthopaedic Surgery Foot and Ankle Surgery
PROC: (CPT 28122; principal; 2020-05-28 08:45)
DX: M86.171 Other acute osteomyelitis, right ankle and foot (principal); E11.621 Type 2 diabetes mellitus with foot ulcer; L97.516 Non-pressure chronic ulcer of other part of right foot with bone involvement without evidence of necrosis; Z79.84 Long term (current) use of oral hypoglycemic drugs
CPT/HCPCS: 28122; 87070; 87075; 87077; 87102; 87116; 87147; 87176; 87186; 87205; 87206; J2250; J2405; J2704; J3010

== ENCOUNTER 2025-03-14 17:53 | Inpatient (IN) | payer OTHER, SELFPAY ==
[2025-03-14 18:09] VITALS: BP 134/76; PULSE 91; RESP 16; TEMP 36.9; O2SAT 99; BMI 33.9
--- NOTE | 2025-03-14 18:28 | DI.RAD.S_ITS ---
PROCEDURE: XR CHEST 1V INDICATIONS: suspected sepsis TECHNIQUE: One view of the chest was acquired. COMPARISON: None. FINDINGS: Surgical changes and devices: None. Lungs and pleura: Lungs are clear. No pleural effusions or pneumothorax. Mediastinum: Mediastinal contours appear normal. Heart size is normal. Bones and chest wall: No suspicious bony lesions. Overlying soft tissues appear unremarkable. IMPRESSION: No acute cardiopulmonary abnormality is seen. Dictated by: Cristian Nixon M.D. on 03/14/2025 at 20:05 Approved by: Cristian Nixon M.D. on 03/14/2025 at 20:06
[2025-03-14 18:37] LABS: Add Manual Diff / Slide Review NO; Basophils Absolute Auto 100 /uL (0-100); Basophils Percent Auto 0.8 % (0-2); Eosinophils Absolute Auto 200 /uL (0-450); Eosinophils Percent Auto 3.1 % (2-4); Hemoglobin 14.4 g/dL (13.5-17.5); Lymphocytes Absolute Auto 2200 /uL (1100-4500); Lymphocytes Percent Auto 29.9 % (25-40); Mean Corpuscular HGB Conc 33.4 % (30-36); Mean Corpuscular Hemoglobin 27.7 PG (26-34); Monocytes Absolute Auto 1000 /uL (0-900); Monocytes Percent Auto 13.7 % (3-14); Neutrophils Absolute Auto 3800 /uL (1500-7000); Neutrophils Percent Auto 52.5 % (50-75); Platelet Count 268 X10^3/uL (150-400); Red Blood Cell Count 5.19 X10^6/uL (4.5-5.9); Red Cell Distribution Width 13.2 % (11.6-14.8); White Blood Cell Count 7.2 X10^3/uL (4.5-11.0)
[2025-03-14 18:38] LABS: Bilirubin Urine UA 1+ (NEGATIVE); Color Urine UA YELLOW; Glucose Urine UA NEGATIVE (Negative); Ketones Urine UA NEGATIVE (NEGATIVE); Leukocyte Esterase Urine UA TRACE (NEGATIVE); Nitrite Urine UA NEGATIVE (Negative); Occult Blood Urine UA NEGATIVE (Negative); Protein Urine UA 1+ (Negative); Specific Gravity Urine UA >=1.030 (1.000-1.035)
[2025-03-14 18:44] LABS: Prothrombin Time 11.7 SECONDS (9.4-12.5)
[2025-03-14 18:46] LABS: PTT Partial Thromboplastin Tim 33 SECONDS (25.1-36.5)
[2025-03-14 18:48] LABS: Alanine Aminotransferase 11 IU/L (<50); Albumin 4.6 g/dL (3.5-5.0); Albumin Globulin Ratio 1.3 (1.0-2.8); Alkaline Phosphatase 71 U/L (38-126); Aspartate Aminotransferase 31 IU/L (17-59); BUN Creatinine Ratio 12.1 (6-22); Bilirubin Total 0.5 mg/dL (0.2-1.3); Blood Urea Nitrogen 7 mg/dL (9-20); Calcium 9.1 mg/dL (8.4-10.2); Carbon Dioxide 21 mmol/L (22-32); Chloride 104 mmol/L (98-107); Estimated Glomerular Filt Rate > 60 mL/min (>60); Globulin 3.6 g/dL (1.7-4.1); Glucose 114 mg/dL (70-99); HEMOLYSIS 19 (0-50); Lactate (Lactic Acid) 0.9 mmol/L (0.7-2.1); Lipase 70 U/L (23-300); Potassium 3.8 mmol/L (3.4-5.1); Sodium 137 mmol/L (137-145); Total Protein 8.2 g/dL (6.3-8.2)
[2025-03-14 18:53] LABS: Appearance Urine UA SL CLOUDY; Bacteria Urine Few (2-10); Ictotest Urine Negative (Negative); RBC Urine 0-1/HPF (0-5/HPF); Squamous Epithelial Cell Urine 0-1 /HPF (0-5/HPF); Urine Volume 10mL (spun); WBC Urine 5-10/HPF (0-5/HPF)
[2025-03-14 18:54] LABS: Culture Indicated Urine Specimen Cultured; Mucus Urine 1+ (Negative); Sperm Urine PRESENT
[2025-03-14 22:00] VITALS: BP 169/77; PULSE 89; RESP 20; O2SAT 99
[2025-03-14 23:15] VITALS: PULSE 89; O2SAT 98
[2025-03-14 23:16] VITALS: BP 126/71; PULSE 87; O2SAT 99
--- NOTE | 2025-03-14 23:22 | ED_ITS ---
HPI - Recheck/Abnormal Lab/Rx General Chief Complaint: Recheck/Abnormal Lab/Rx Stated Complaint: [facility], staff infection Time Seen by Provider: 03/14/25 23:21 Source: patient, RN notes reviewed and old records reviewed Mode of arrival: Ambulatory Limitations: no limitations History of Present Illness HPI narrative: 44-year-old male history of diabetes and osteomyelitis was in [place] for left foot cellulitis and admitted recommended IV antibiotics discharge today and told had a positive blood culture and advised to come to [facility] for more resources. Patient states he was spent 2 days at [facility] [place] for inpatient IV antibiotics has a wound on his foot he states the redness improved significantly he was supposed to follow up with primary care and has been discharged on Bactrim and cephalexin. Patient states no fevers since he has been out of the hospital did have them before. No chest pain, no shortness of breath, no nausea or vomiting no other GI or urinary symptoms. States redness and discomfort in his lower extremity improved. He states he had he does have sensation in his feet. He has had osteomyelitis in the opposite foot in the past but not recently. Patient states no tobacco, occasional alcohol, occasional marijuana no IV drugs. Lives in [place] on [address] [facility]. Patient was contacted because he had positive blood cultures and was told to come off [place] to larger facility that has a infectious disease MRI Related Data Home Medications ?Medication ?Instructions ?Recorded ?Confirmed metformin 1,000 mg tablet 1,000 mg PO DAILY 05/21/20 0 03/15/25 risankizumab-rzaa 150 mg/mL 150 mg SUBCUT Q12W 5 03/15/25 subcutaneous syringe (Skyrizi) tirzepatide 10 mg/0.5 mL 10 mg SUBCUT WEEKLY 03/15/25 03/15/25 subcutaneous pen injector (Mounjaro) Allergies Allergy/AdvReac Type Severity Reaction Status Date / Time No Known Drug Allergies Allergy Verified 03/14/25 18:09 Review of Systems Review of Systems ROS Unobtainable: All systems reviewed & are unremarkable except as noted in HPI and below Patient History Medical History Charcot's joint of foot Diabetic foot ulcer with osteomyelitis Diabetic foot ulcers Neuropathy Diabetes mellitus, type II Surgical History S/P PICC central line placement Social History alcohol intake: current alcohol intake frequency: a few times a month Exam Narrative Exam Narrative: GENERAL: Alert and oriented x three, well-appearing male in mild distress HEENT: Head normocephalic, atraumatic, EOMI, pupils reactive, face symmetric, moist mucous membranes NECK: Supple, full range of motion CARDIOVASCULAR: Regular rate and rhythm without murmurs, rubs or gallops. No edema bilateral lower extremities. RESPIRATORY: Breath sounds equal bilaterally, no wheezes rales or rhonchi. No tachypnea or tachycardia. ABDOMEN: Soft, nontender. Normoactive bowel sounds all 4 quadrants. No guarding or rebound, rigidity, no mass : No CVA tenderness EXTREMITIES: Normal range of motion, no clubbing or edema. Neurovascularly intact. Patient has a wound on his left foot over the ball of the foot. There is some fluctuance there was no erythema there are markings showing where he had erythema which has resolved. Skin is intact. Patient has 2+ dorsalis pedis bilaterally. Sensation intact. NEUROLOGICAL: Cranial nerves II through XII grossly intact. Moving all extremities SKIN: Warm, dry, no petechiae, no rashes or lesions. Initial Vital Signs Initial Vital Signs: Vital Signs Temperature 98.5 F 03/14/25 18:09 Pulse Rate 91 H 03/14/25 18:09 Respiratory Rate 16 03/14/25 18:09 Blood Pressure 134/76 03/14/25 18:09 Pulse Oximetry 99 03/14/25 18:09 Oxygen Delivery Method Room Air 03/14/25 18:09 Course Orders Ordered: ED Orders 03/14/25 23:52 XR foot LT min 3V Stat 03/15/25 01:21 Consult to Orthopedic Surgery Stat 03/15/25 06:37 Complete Blood Count AUTO DIFF DAILY Comprehensive Metabolic Panel DAILY Acetaminophen (Acetaminophen 325 Mg Tablet) 650 mg PO Q6H PRN PRN Reason: Fever/Mild Pain (1-3) Hydrocodone Bitart/Acetaminophen (Hydrocodone/Acet 5/325 Tablet) 1 tab PO Q4H PRN PRN Reason: Pain, Moderate (4-6) Sodium Chloride (Normal Saline 0.9%) 1,000 mls @ 75 mls/hr IV CONT [facility] Last Admin: 03/15/25 02:26 Dose: 75 mls/hr Documented By: GELA Piperacillin Sod/Tazobactam (Sod 3.375 gm/ Sodium Chloride) 100 mls @ 25 mls/hr IV Q8H [facility] Last Admin: 03/15/25 06:21 Dose: 25 mls/hr Documented By: GELA Vancomycin HCl/Dextrose (Vancomycin) 2,000 mg in 400 mls @ 200 mls/hr IV Q12H [facility] Dextrose (D10w) 100 mls @ 999 mls/hr IV PRN PRN PRN Reason: Hypoglycemia Insulin Human Lispro (Insulin Lispro 100 Unit/Ml 3ml Vial) 0 unit SUBCUT ACHS [facility]; Protocol Morphine Sulfate (Morphine 4 Mg/Ml Inj) 3 mg IV Q2HR PRN PRN Reason: pain Naloxone HCl (Naloxone 0.4 Mg/Ml Vial) 0.2 mg IV Q2MIN PRN PRN Reason: Opiate Reversal Ondansetron HCl (Ondansetron 4 Mg/2 Ml Inj) 4 mg IV NOW PRN PRN Reason: Nausea And Vomiting Ondansetron HCl (Ondansetron 4 Mg Odt) 4 mg PO NOW PRN PRN Reason: Nausea And Vomiting Vancomycin HCl (Vancomycin Per Pharmacy) 1 request MISC NOW PRN PRN Reason: bacteremic Vancomycin HCl (Vancomycin Trough) 1 request MISC 1230 [facility] Stop: 03/16/25 12:31 Discontinued Medications Sodium Chloride (Normal Saline 0.9%) 1,000 mls @ 1,000 mls/hr IV BOLUS ONE Stop: 03/14/25 19:26 Last Admin: 03/15/25 02:27 Dose: Not Given Documented By: DIXIE Vancomycin HCl/Dextrose (Vancomycin) 1,500 mg in 300 mls @ 200 mls/hr IV NOW ONE Stop: 03/15/25 02:49 Last Infusion: 03/15/25 04:00 Dose: Infused Documented By: Admin: 03/15/25 02:22 Dose: 200 mls/hr Documented By: DIXIE Piperacillin Sod/Tazobactam (Sod 4.5 gm/ Sodium Chloride) 100 mls @ 200 mls/hr IV NOW ONE Stop: 03/15/25 01:21 Last Infusion: 03/15/25 02:27 Dose: Infused Documented By: Admin: 03/15/25 01:51 Dose: 200 mls/hr Documented By: DIXIE Piperacillin Sod/Tazobactam (Sod 3.375 gm/ Sodium Chloride) 100 mls @ 25 mls/hr IV Q8H [facility] Last Admin: 03/15/25 02:20 Dose: Not Given Documented By: CT Vancomycin HCl/Dextrose (Vancomycin) 2,000 mg in 400 mls @ 200 mls/hr IV NOW ONE Stop: 03/15/25 04:29 Last Admin: 03/15/25 02:30 Dose: Not Given Documented By: CT Vital Signs Vital signs: Vital Signs - 8 hr 03/15/25 00:00 03/15/25 00:00 03/15/25 00:30 Pulse Rate 84 Respiratory Rate Blood Pressure 129/83 116/78 Pulse Oximetry 97 03/15/25 00:30 03/15/25 01:00 03/15/25 01:07 Pulse Rate 82 83 Respiratory Rate Blood Pressure 174/99 H Pulse Oximetry 96 97 03/15/25 01:07 Pulse Rate 83 Respiratory Rate 18 Blood Pressure Pulse Oximetry 98 MDM - Recheck/Abnormal Lab/Rx Lab Data 03/15/25 06:37 03/15/25 06:37 Labs: Lab Results 03/14/25 Range/Units 18:22 WBC 7.2 (4.5-11.0) X10^3/uL RBC 5.19 (4.5-5.9) X10^6/uL Hgb 14.4 (13.5-17.5) g/dL Hct 43.0 (41-53) % MCV 83.0 (80-100) fL MCH 27.7 (26-34) PG MCHC 33.4 (30-36) % RDW 13.2 (11.6-14.8) % Plt Count 268 (150-400) X10^3/uL Neut % (Auto) 52.5 (50-75) % Lymph % (Auto) 29.9 (25-40) % [place] % (Auto) 13.7 (3-14) % Eos % (Auto) 3.1 (2-4) % Baso % (Auto) 0.8 (0-2) % Neut # (Auto) 3800 (9393-3724) /uL Lymph # (Auto) 2200 (0987-3855) /uL [place] # (Auto) 1000 H (0-900) /uL Eos # (Auto) 200 (0-450) /uL Baso # (Auto) 100 (0-100) /uL PT 11.7 (9.4-12.5) SECONDS INR 1.0 (0.9-1.3) APTT 33 (25.1-36.5) SECONDS Sodium 137 (137-145) mmol/L Potassium 3.8 (3.4-5.1) mmol/L Chloride 104 (98-107) mmol/L Carbon Dioxide 21 L (22-32) mmol/L BUN 7 L (9-20) mg/dL Creatinine 0.58 L (0.66-1.25) mg/dL Estimated GFR > 60 (>60) mL/min BUN/Creatinine Ratio 12.1 (6-22) Glucose 114 H (70-99) mg/dL Lactate 0.9 (0.7-2.1) mmol/L Calcium 9.1 (8.4-10.2) mg/dL Total Bilirubin 0.5 (0.2-1.3) mg/dL AST 31 (17-59) IU/L ALT 11 (<50) IU/L Alkaline Phosphatase 71 (38-126) U/L Total Protein 8.2 (6.3-8.2) g/dL Albumin 4.6 (3.5-5.0) g/dL Globulin 3.6 (1.7-4.1) g/dL Albumin/Globulin Ratio 1.3 (1.0-2.8) Lipase 70 (23-300) U/L Procalcitonin 0.190 (<0.5) ng/mL Urine Color Yellow Urine Appearance Sl cloudy Urine pH 6.0 (4.5-8.0) Ur Specific [place] >=1.030 H (1.000-1.035) Urine Protein 1+ H (Negative) Urine Glucose (UA) Negative (Negative) g/dL Urine Ketones Negative (NEGATIVE) Urine Occult Blood Negative (Negative) Urine Nitrate Negative (Negative) Urine Bilirubin 1+ H (NEGATIVE) Ur Bilirubin Confirm Negative (Negative) Urine Urobilinogen 1.0 (0.2) E.U./dL Ur Leukocyte Esterase Trace H (NEGATIVE) Urine RBC 0-1/hpf (0-5/HPF) Urine WBC 5-10/hpf H (0-5/HPF) Ur Squamous Epith Cells 0-1 /hpf (0-5/HPF) Urine Bacteria Few (2-10) H (None) Urine Mucus 1+ H (Negative) Urine Sperm Present Ur Culture Indicated? Specimen cultured Vol Urine Centrifuged 10ml (spun) MDM Narrative Medical decision making narrative: Labs show white count of 7.2 hemoglobin of 14 platelets of 268. Coags are negative, chemistries are normal except for a CO2 of 21 BUN is 7 creatinine 0.58 glucose of 114 lactate 0.9 procalcitonin is 0.190, lipase of 70. Blood cultures are pending here. She also has urine culture pending. Chest x-ray shows no acute change Foot x-ray Patient was not [place] received Zosyn and vancomycin. Was discharged with blood cultures pending and they both tested positive for Staphylococcus aureus on PCR. Patient was recommended to come [place] for cultures, echo in infectious disease consult Spoke with Dr. Doyle, [facility] hospitalist happy to admit patient we will continue with IV antibiotics of Zosyn and vancomycin. So we talk with Orthopedic surgery to make sure they will follow along and would accept for inpatient. Did discuss concern for osteomyelitis as he was had it in his other foot but not confirmed in this foot. Spoke with Dr. Serra, orthopedic surgery we will see patient and follow and evaluate to see if needs surgical interventions versus not. Discharge Plan Departure Patient Disposition: Admitted As Inpatient Clinical Impression: Bacteremia, Diabetic foot ulcers Admit Date/Time: 03/15/25 01:29 Admit Provider: Tavares Doyle
[2025-03-14 23:30] VITALS: BP 129/77; PULSE 84; O2SAT 98
--- NOTE | 2025-03-14 23:52 | DI.RAD.S_ITS ---
PROCEDURE: XR FOOT LT MIN 3V INDICATIONS: + blood cultures,foot infxn improving TECHNIQUE: 3 views of the foot were acquired. COMPARISON: [facility], CR, XR FOOT RT MIN 3V, 12/18/2019, 10:30. [facility], CR, XR FOOT RT MIN 3V, 11/14/2018, 11:48. FINDINGS AND IMPRESSION: No definite radiographic erosions. Moderate overall arthrosis, particularly in the midfoot, with many periarticular bone fragments and osteophytes. Significant plantar and calcaneal enthesopathy. Age-indeterminate fracture through the enthesophyte at the plantar fascia. No acute displaced fracture or dislocation otherwise. Vascular calcifications. If there is high concern for further derangement, consider MRI evaluation. Dictated by: Rogelio Chino M.D. on 03/15/2025 at 1:43 Approved by: Rogelio Chino M.D. on 03/15/2025 at 1:45
[2025-03-15] VITALS (9 sets, daily range): BP systolic 105–174; BP diastolic 70–115; PULSE 78–91; RESP 16–19; TEMP 36.1–36.3; O2SAT 96–100; BMI 33.9
--- NOTE | 2025-03-15 01:46 | PC.NURSE ---
Assisted with Dr. Doyle intake to inpatient.
[2025-03-15] MEDS: PIPERACILLIN/TAZO 4.5 GM in SODIUM CHLORIDE 0.9% 100 ML IV (01:51)
[2025-03-15] MEDS: VANCOMYCIN 1,500 MG/300 ML PIGGYBACK 200 MG IV (02:22)
[2025-03-15] MEDS: SODIUM CHLORIDE 0.9% 1,000 ML 75 ML IV (02:26)
--- NOTE | 2025-03-15 02:57 | PM.HP.1 ---
History of Present Illness History of Present Illness Chief complaint: pcp [place], staff infection Narrative: 44-year-old male with past medical history of alg-owsxnzi-ropappewd diabetes and osteomyelitis presents with positive blood culture. Of note the patient was admitted 2 days ago at [facility] for left foot cellulitis and possible osteomyelitis. The patient was given IV antibiotics and switch over to Bactrim and Keflex at time of discharge yesterday. However the patient was contacted and notified to come into the ER due to positive blood culture. It was reported that the blood culture came back to bottles positive for gram positive cocci. It is also recommended that the patient come into our ER for further assessment of underlying osteomyelitis with possible MRI. Otherwise the patient denies any fever, chills, nausea, vomiting, diarrhea, chest pain, abdominal pain or shortness of breath. The patient states that his redness in his left foot has improved since he was started and treated with IV antibiotic 3 days ago. In the emergency room, the patient was hemodynamically stable without sign of sepsis. The patient labs were relatively benign. Chest x-ray was clear. X-ray of the left foot shows no clear sign of osteomyelitis and the recommendation of MRI if clinical suspicion is high for osteomyelitis. Orthopedic surgeon was consulted and recommended that we continue IV antibiotic and they will consult in the morning. [facility] Medical History (Updated 03/15/25 @ 01:30 by Brittney Saleh DO) Charcot's joint of foot Diabetic foot ulcer with osteomyelitis Diabetic foot ulcers Neuropathy Diabetes mellitus, type II Surgical History S/P PICC central line placement Social History alcohol intake: current Meds Home Medications and Allergies Home Medications ?Medication ?Instructions ?Recorded ?Confirmed ?Type calcium carbonate (Calcium 600) 1,200 mg PO DAILY 05/21/20 05/28/20 History cholecalciferol (vitamin D3) 25 25 mcg PO DAILY 05/21/20 05/28/20 History mcg (1,000 unit) capsule (Vitamin D3) flaxseed oil 1,000 mg capsule 1,000 mg PO DAILY 05/21/20 05/28/20 History garlic 1,000 mg capsule 1,000 mg PO DAILY 05/21/20 05/28/20 History metformin 1,000 mg tablet 1,000 mg PO BID 05/21/20 05/28/20 History turmeric 400 mg capsule 600 mg PO DAILY 05/21/20 05/28/20 History hydrocodone 5 mg-acetaminophen 325 1 tab PO Q4H PRN pain #30 tabs 05/28/20 Rx mg tablet ([place]) Allergies Allergy/AdvReac Type Severity Reaction Status Date / Time No Known Drug Allergies Allergy Verified 03/14/25 18:09 Review of Systems Review of Systems ROS: Yes All systems reviewed with the patient and are negative except as otherwise documented Exam Vital Signs (past 8 hours): - 03/14/25 22:00 03/14/25 23:15 03/14/25 23:16 Pulse Rate 89 89 87 Respiratory Rate 20 Blood Pressure 169/77 H Pulse Oximetry 99 98 99 03/14/25 23:16 03/14/25 23:30 03/14/25 23:30 Pulse Rate 84 Respiratory Rate Blood Pressure 126/71 129/77 Pulse Oximetry 98 03/15/25 00:00 03/15/25 00:00 03/15/25 00:30 Pulse Rate 84 Respiratory Rate Blood Pressure 129/83 116/78 Pulse Oximetry 97 03/15/25 00:30 03/15/25 01:00 03/15/25 01:07 Pulse Rate 82 83 Respiratory Rate Blood Pressure 174/99 H Pulse Oximetry 96 97 03/15/25 01:07 03/15/25 01:30 03/15/25 01:30 Pulse Rate 83 82 Respiratory Rate 18 Blood Pressure 164/97 H Pulse Oximetry 98 99 03/15/25 02:00 03/15/25 02:00 Pulse Rate 81 Respiratory Rate 18 Blood Pressure 172/115 H Pulse Oximetry 98 Oxygen Delivery Method Room Air Narrative Exam Narrative: Physical Exam: GENERAL: The patient is not in any acute distressed. Awake and alert. HEENT: Nonicteric sclerae, PERRLA, EOMI. Oropharynx clear. Moist mucous membranes. Conjunctivae appear well perfused. HEART: Regular rate and rhythm without murmurs. No lower extremities edema. LUNGS: Clear to auscultation bilaterally. No wheezing, crackles or rhonchi ABDOMEN: Soft, positive bowel sounds, nontender. SKIN: Diabetic ulcer noted in left plantar aspect near great toe. No significant surrounding erythema. No rash, no excessive bruising, petechiae, or purpura. NEUROLOGIC: AxO x 3. Cranial nerves II-XII intact without motor/sensory deficit. Objective Labs 03/14/25 18:22 03/14/25 18:22 Labs: Laboratory Results - last 24 hr 03/14/25 18:22 WBC 7.2 RBC 5.19 Hgb 14.4 Hct 43.0 MCV 83.0 MCH 27.7 MCHC 33.4 RDW 13.2 Plt Count 268 Neut % (Auto) 52.5 Lymph % (Auto) 29.9 [place] % (Auto) 13.7 Eos % (Auto) 3.1 Baso % (Auto) 0.8 Neut # (Auto) 3800 Lymph # (Auto) 2200 [place] # (Auto) 1000 H Eos # (Auto) 200 Baso # (Auto) 100 PT 11.7 INR 1.0 APTT 33 Sodium 137 Potassium 3.8 Chloride 104 Carbon Dioxide 21 L BUN 7 L Creatinine 0.58 L Estimated GFR > 60 BUN/Creatinine Ratio 12.1 Glucose 114 H Lactate 0.9 Calcium 9.1 Total Bilirubin 0.5 AST 31 ALT 11 Alkaline Phosphatase 71 Total Protein 8.2 Albumin 4.6 Globulin 3.6 Albumin/Globulin Ratio 1.3 Lipase 70 Procalcitonin 0.190 Urine Color Yellow Urine Appearance Sl cloudy Urine pH 6.0 Ur Specific [place] >=1.030 H Urine Protein 1+ H Urine Glucose (UA) Negative Urine Ketones Negative Urine Occult Blood Negative Urine Nitrate Negative Urine Bilirubin 1+ H Ur Bilirubin Confirm Negative Urine Urobilinogen 1.0 Ur Leukocyte Esterase Trace H Urine RBC 0-1/hpf Urine WBC 5-10/hpf H Ur Squamous Epith Cells 0-1 /hpf Urine Bacteria Few (2-10) H Urine Mucus 1+ H Urine Sperm Present Ur Culture Indicated? Specimen cultured Vol Urine Centrifuged 10ml (spun) Assessment & Plan Assessment & Plan narrative: Bacteremia with diabetic foot ulcer concerning for underlying osteomyelitis. Admit the patient to medical floor as inpatient. Of note the patient is not septic at this time and hemodynamically stable. Will continue IV vancomycin and Zosyn for now. X-ray does not show clear signs of osteomyelitis. However orthopedic surgeon has been consulted and will make further recommendation in the morning. Will need to follow-up [facility] was verbally reported that the patient was positive for gram-positive cocci in both bottles. Qeq-jtihoor-abzxdyhtd diabetes. Hold home metformin. Monitor glucose with subcu insulin. DVT prophylaxis SCDs for now CODE STATUS full code. Disposition likely home in 2 to 3 days - As the provider of this telehealth evaluation, requested by the patient's evaluating physician, I attest that I introduced myself to the patient, provided my credentials and determined that telemedicine via a real-time, 2 way interactive audio and video platform is an appropriate and effective means of providing this service. - I reviewed the patient's chart and had a discussion with the member of the patient's treatment team. - The patient and I mutually agreed with continuation of this evaluation via telemedicine. The patient consented for the telemedicine evaluation. - This virtual encounter was taken place from [place] by Dr. Tavares Doyle. The patient was evaluated at [facility]. The encounter was approximately 35 minutes. The nurse was present during the entire time of the encounter and was able to move the stethoscope in appropriate directions. Time-Based Coding :: [TOTAL MINUTES] spent with patient and on the chart (including review of chart, obtaining history, exam, reviewing outside data, placing orders, documenting exam and treatment plan, and counseling patient) on [DATE].
[2025-03-15] MEDS: PIPERACILLIN/TAZO 3.375 GM in SODIUM CHLORIDE 0.9% 100 ML IV ×3 (06:21→21:01)
[2025-03-15 06:56] LABS: Add Manual Diff / Slide Review NO; Basophils Absolute Auto 100 /uL (0-100); Basophils Percent Auto 0.9 % (0-2); Eosinophils Absolute Auto 300 /uL (0-450); Hemoglobin 13.5 g/dL (13.5-17.5); Lymphocytes Absolute Auto 2200 /uL (1100-4500); Lymphocytes Percent Auto 31.4 % (25-40); Mean Corpuscular HGB Conc 33.7 % (30-36); Mean Corpuscular Volume 83.1 fL (80-100); Monocytes Absolute Auto 1000 /uL (0-900); Monocytes Percent Auto 14.8 % (3-14); Neutrophils Absolute Auto 3300 /uL (1500-7000); Neutrophils Percent Auto 47.9 % (50-75); Platelet Count 241 X10^3/uL (150-400); Red Blood Cell Count 4.81 X10^6/uL (4.5-5.9); Red Cell Distribution Width 12.8 % (11.6-14.8); White Blood Cell Count 6.9 X10^3/uL (4.5-11.0)
[2025-03-15 07:14] LABS: Alanine Aminotransferase 10 IU/L (<50); Albumin Globulin Ratio 1.2 (1.0-2.8); Alkaline Phosphatase 69 U/L (38-126); Aspartate Aminotransferase 32 IU/L (17-59); BUN Creatinine Ratio 12.7 (6-22); Bilirubin Total 0.5 mg/dL (0.2-1.3); Blood Urea Nitrogen 9 mg/dL (9-20); Calcium 8.9 mg/dL (8.4-10.2); Carbon Dioxide 25 mmol/L (22-32); Chloride 105 mmol/L (98-107); Estimated Glomerular Filt Rate > 60 mL/min (>60); Globulin 3.3 g/dL (1.7-4.1); Glucose 87 mg/dL (70-99); HEMOLYSIS < 15 (0-50); Potassium 3.8 mmol/L (3.4-5.1); Sodium 138 mmol/L (137-145); Total Protein 7.3 g/dL (6.3-8.2)
--- NOTE | 2025-03-15 07:29 | P.HP_ITS ---
History of Present Illness History of Present Illness Date Patient Seen: 03/15/25 Chief complaint: pcp tuesday [facility], staff infection Narrative: From night doctor: 44-year-old male with past medical history of chk-yzcmyki-qdktprkmo diabetes and osteomyelitis presents with positive blood culture. Of note the patient was admitted 2 days ago at [facility] for left foot cellulitis and possible osteomyelitis. The patient was given IV antibiotics and switch over to Bactrim and Keflex at time of discharge yesterday. However the patient was contacted and notified to come into the ER due to positive blood culture. It was reported that the blood culture came back to bottles positive for gram positive cocci. It is also recommended that the patient come into our ER for further assessment of underlying osteomyelitis with possible MRI. Otherwise the patient denies any fever, chills, nausea, vomiting, diarrhea, chest pain, abdominal pain or shortness of breath. The patient states that his redness in his left foot has improved since he was started and treated with IV antibiotic 3 days ago. In the emergency room, the patient was hemodynamically stable without sign of sepsis. The patient labs were relatively benign. Chest x-ray was clear. X-ray of the left foot shows no clear sign of osteomyelitis and the recommendation of MRI if clinical suspicion is high for osteomyelitis. Orthopedic surgeon was consulted and recommended that we continue IV antibiotic and they will consult in the morning. S: The lesion has been open for 2-3 days and passing out. One blood culture was positive at [facility], 2 are pending here. No bad odor. He does have some sensation in his feet and denies pain. [facility] Medical History Charcot's joint of foot Diabetic foot ulcer with osteomyelitis Diabetic foot ulcers Neuropathy Diabetes mellitus, type II Surgical History S/P PICC central line placement Social History alcohol intake: current Meds Home Medications and Allergies Home Medications ?Medication ?Instructions ?Recorded ?Confirmed ?Type metformin 1,000 mg tablet 1,000 mg PO DAILY 05/21/20 0 03/15/25 History risankizumab-rzaa 150 mg/mL 150 mg SUBCUT Q12W 5 03/15/25 History subcutaneous syringe (Skyrizi) tirzepatide 10 mg/0.5 mL 10 mg SUBCUT WEEKLY 03/15/25 03/15/25 History subcutaneous pen injector (Mounjaro) Allergies Allergy/AdvReac Type Severity Reaction Status Date / Time No Known Drug Allergies Allergy Verified 03/14/25 18:09 Review of Systems Review of Systems Narrative: All else reviewed and otherwise unremarkable except as noted in the history and physical. Exam Vital Signs (past 8 hours): - 03/14/25 23:30 03/14/25 23:30 03/15/25 00:00 Temperature Pulse Rate 84 84 Respiratory Rate Blood Pressure 129/77 Pulse Oximetry 98 97 Oxygen Delivery Method Oxygen Flow Rate 03/15/25 00:00 03/15/25 00:30 03/15/25 00:30 Temperature Pulse Rate 82 Respiratory Rate Blood Pressure 129/83 116/78 Pulse Oximetry 96 Oxygen Delivery Method Oxygen Flow Rate 03/15/25 01:00 03/15/25 01:07 03/15/25 01:07 Temperature Pulse Rate 83 83 Respiratory Rate 18 Blood Pressure 174/99 H Pulse Oximetry 97 98 Oxygen Delivery Method Oxygen Flow Rate 03/15/25 01:30 03/15/25 01:30 03/15/25 02:00 Temperature Pulse Rate 82 Respiratory Rate Blood Pressure 164/97 H 172/115 H Pulse Oximetry 99 Oxygen Delivery Method Oxygen Flow Rate 03/15/25 02:00 03/15/25 02:57 03/15/25 02:58 Temperature 96.9 F L Pulse Rate 81 80 Respiratory Rate 18 16 Blood Pressure 124/78 Pulse Oximetry 98 100 Oxygen Delivery Method Room Air Oxygen Flow Rate 0 Oxygen Delivery Method Room Air Oxygen Flow Rate 0 Narrative Exam Narrative: NAD, alert and oriented, fluent speech, calm. Normocephalic skull, EOMI, anicteric sclera, symmetric pupils. Oropharynx unremarkable, no droop. Neck supple, midline trachea, no adenopathy. Lungs clear, normal rate and effort. Heart regular, no murmur gallop or rub. Abdomen is soft, non distended and non tender. Extremities are free of edema. Skin is free of rash or lesions. Joints are not swollen or deformed. Judgment appears to be normal. Right foot there is an ulcer in the ball of the foot beneath the great toe. Discharged does expel with any pressure. Objective Labs 03/15/25 06:37 03/15/25 06:37 Labs: Laboratory Results - last 24 hr 03/14/25 03/15/25 18:22 06:37 WBC 7.2 6.9 RBC 5.19 4.81 Hgb 14.4 13.5 Hct 43.0 40.0 L MCV 83.0 83.1 MCH 27.7 28.0 MCHC 33.4 33.7 RDW 13.2 12.8 Plt Count 268 241 Neut % (Auto) 52.5 47.9 L Lymph % (Auto) 29.9 31.4 [place] % (Auto) 13.7 14.8 H Eos % (Auto) 3.1 5.0 H Baso % (Auto) 0.8 0.9 Neut # (Auto) 3800 3300 Lymph # (Auto) 2200 2200 [place] # (Auto) 1000 H 1000 H Eos # (Auto) 200 300 Baso # (Auto) 100 100 PT 11.7 INR 1.0 APTT 33 Sodium 137 138 Potassium 3.8 3.8 Chloride 104 105 Carbon Dioxide 21 L 25 BUN 7 L 9 Creatinine 0.58 L 0.71 Estimated GFR > 60 > 60 BUN/Creatinine Ratio 12.1 12.7 Glucose 114 H 87 Lactate 0.9 Calcium 9.1 8.9 Total Bilirubin 0.5 0.5 AST 31 32 ALT 11 10 Alkaline Phosphatase 71 69 Total Protein 8.2 7.3 Albumin 4.6 4.0 Globulin 3.6 3.3 Albumin/Globulin Ratio 1.3 1.2 Lipase 70 Procalcitonin 0.190 Urine Color Yellow Urine Appearance Sl cloudy Urine pH 6.0 Ur Specific [place] >=1.030 H Urine Protein 1+ H Urine Glucose (UA) Negative Urine Ketones Negative Urine Occult Blood Negative Urine Nitrate Negative Urine Bilirubin 1+ H Ur Bilirubin Confirm Negative Urine Urobilinogen 1.0 Ur Leukocyte Esterase Trace H Urine RBC 0-1/hpf Urine WBC 5-10/hpf H Ur Squamous Epith Cells 0-1 /hpf Urine Bacteria Few (2-10) H Urine Mucus 1+ H Urine Sperm Present Ur Culture Indicated? Specimen cultured Vol Urine Centrifuged 10ml (spun) Assessment & Plan Assessment & Plan narrative: 1. Bacteremia with diabetic foot ulcer concerning for underlying osteomyelitis. Admit the patient to medical floor as inpatient. Of note the patient is not septic at this time and hemodynamically stable. Will continue IV vancomycin and Zosyn for now. X-ray does not show clear signs of osteomyelitis. However orthopedic surgeon has been consulted and will make further recommendation in the morning. Will need to follow-up with blood cultures that [facility] as it was verbally reported that the patient was positive for gram-positive cocci in both bottles. 2. Bfw-zyukqlh-fpgmxnose diabetes. Hold home metformin. Monitor glucose with subcu insulin. PLAN: Continue antibiotics MRI of foot to rule out osteomyelitis Orthopedics consult DVT prophylaxis SCDs for now CODE STATUS full code. Time-Based Coding :: 35 min spent with patient and on the chart (including review of chart, obtaining history, exam, reviewing outside data, placing orders, documenting exam and treatment plan, and counseling patient) on 03/15. Quality MIPS - Admit I confirm the patient?s Advance Care Plan is present, Code status is documented, Surrogate decision maker is in patient?s record [If Yes, STOP here]: Yes MIPS - Meds 'Current medications' to include all prescriptions, ljnu-ofx-[id number] products, herbals, cannabis/cannabidiol products, and vitamin/mineral/dietary (nutritional) supplements. I have utilized all available resources to obtain, update, or review the patient?s current medications. [If Yes, STOP here]: Yes
--- NOTE | 2025-03-15 09:01 | DI.MRI.S_ITS ---
PROCEDURE: MRFOOT LT WO CON INDICATIONS: rule out osteo TECHNIQUE: Multiphasic, multisequence MRI of the forefoot was performed, without intravenous contrast administration. COMPARISON: None. FINDINGS: Image quality: Excellent. Bones and joints: Mild osteoarthritic changes are noted in great toe involving 1st MTP joint and articulation between 1st metatarsal head and sesamoids. Mild osteoarthritic changes also noted involving navicular cuneiform joints with mild edema seen in navicular bone, medial and middle cuneiform. No discrete fracture line is seen. There is also marrow edema involving medial and lateral sesamoid bones of 1st metatarsal head. Subtle cortical erosion involving medial sesamoid of 1st metatarsal head is seen. No fracture or dislocation. No metatarsal stress fractures. Soft tissues: Ulceration involving plantar aspect of great toe at the level of 1st MTP joint is seen with soft tissue swelling and edema extending to throughout midfoot and forefoot. No discrete drainable abscess collection. Edema involving plantar foot muscles is seen without intramuscular abscess collection. Extensor and flexor tendons are grossly intact. Principal Lisfranc ligament is intact. IMPRESSION: 1. Ulceration involving plantar aspect of great toe at the level of 1st MTP joint with cellulitis in forefoot soft tissue. No discrete drainable abscess collection. Mild myositis in visualized plantar foot muscles without intramuscular fluid collection. 2. Finding is concerning for osteomyelitis involving medial and lateral sesamoid bones of 1st metatarsal head. 3. Likely contusion involving navicular bone , medial and middle sesamoid bones. Mild midfoot and forefoot joint osteoarthritis as above. No acute fracture or dislocation. Dictated by: Dhruv Dee M.D. on 03/15/2025 at 16:39 Approved by: Dhruv Dee M.D. on 03/15/2025 at 16:44
--- NOTE | 2025-03-15 09:59 | PC.NURSE ---
Addendum entered by Smiley Ac R.N. 03/15/25 17:47: Patients blood sugar down to the 6os, given snack and juice and now back at 85. He is on a carb consistent diet and tolerating food well. Original Note: Patient is pleasant with care, he has gauze and kurlex on his left foot. CDI. Patient is going to have an MRI later around 1430. He is resting comfortably.
--- NOTE | 2025-03-15 12:51 | CM.DANOTE ---
DCP Assessment Note: Pt is a 44yo male, resident of [place], is admitted for bacteremia, diabetic foot ulcer. Pt lives in a house with his , Dary Holt. Pt's Primary Care Provider is CRISSY Sparks and insurance is [employer]. Reviewed chart and discussed with multidisciplinary team pt's medical status and initial discharge needs. Per hospitalist, obtaining IV abx and will have MRI completed to determine plan of care. Possible Ortho consult. DCP met w/patient at bedside; introduced self and role. Patient was found in bed, alert and oriented, cooperative with assessment. Pt confirmed living situation and good support in , independent at baseline. 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 Pt expressed preference in discharge home when cleared. No previous hx of SNF Rehab or home health, declines need for referrals at this time. Plan: Care plan evolving with possible Ortho I&D and IV abx treatment. Anticipating dc home with spouse when cleared. CM team will follow closely for coordination of discharge plans. Delphine Rodas [facility] Discharge Planning/Care Management CM Discharge Assessment Start: 03/15/25 02:57 Freq: Status: Active Protocol: Document 03/15/25 12:44 MW (Rec: 03/15/25 12:48 MW [id number]) Discharge Planning Assessment Assigned Discharge MIGDALIA Akers Manager Of Community Relations DPOA/Assigned Dary Holt, Designee Name Contact Information [phone] Advance Directives? No History Provided By Patient,Medical Record Has Patient been No admitted in last 30 days? Prior Living House Arrangements Comment [place] Household Members spouse Type of Drives own vehicle transporation used prior to admit Independent with ADL Yes 's Is patient alert and Yes oriented? Caregiver for No Another Discharge Plan Home Whiteboard Updated Yes in Patient Room with name and ext. # of Incident Handler Review Status In Process Please Provide Date 03/15/25 Initial DC Assessment Was Performed Next Review Type Continued Stay Review
[2025-03-15] MEDS: VANCOMYCIN 2,000 MG/400 ML PIGGYBACK 200 MG IV (13:29)
[2025-03-16 00:31] VITALS: BP 136/75; PULSE 84; RESP 19; TEMP 37; O2SAT 99
[2025-03-16] MEDS: VANCOMYCIN 2,000 MG/400 ML PIGGYBACK 200 MG IV ×2 (02:00→13:19)
[2025-03-16] MEDS: PIPERACILLIN/TAZO 3.375 GM in SODIUM CHLORIDE 0.9% 100 ML IV ×2 (05:25→18:31)
--- NOTE | 2025-03-16 07:43 | P.PN_ITS ---
Subjective Subjective Interval history: S: Doing well, no new issues. He was tolerating his IV antibiotics. Exam Vital Signs (past 8 hours): - 03/16/25 00:31 Temperature 98.6 F Pulse Rate 84 Respiratory Rate 19 Blood Pressure 136/75 Pulse Oximetry 99 Oxygen Flow Rate 0 Oxygen Delivery Method Room Air Oxygen Flow Rate 0 Narrative Exam Narrative: NAD, alert and oriented. Fluent speech. Lungs with normal rate and effort. Heart is regular, no murmur gallop or rub. Abdomen is non distended. Extremities are free of edema. Foot wound is wrapped. Objective Imaging MRI foot: : Radiologist's impression: 1. Ulceration involving plantar aspect of great toe at the level of 1st MTP joint with cellulitis in forefoot soft tissue. No discrete drainable abscess collection. Mild myositis in visualized plantar foot muscles without intramuscular fluid collection. 2. Finding is concerning for osteomyelitis involving medial and lateral sesamoid bones of 1st metatarsal head. 3. Likely contusion involving navicular bone , medial and middle sesamoid bones. Mild midfoot and forefoot joint osteoarthritis as above. No acute fracture or dislocation. Labs 03/15/25 06:37 03/15/25 06:37 [facility] Medical History Charcot's joint of foot Diabetic foot ulcer with osteomyelitis Diabetic foot ulcers Neuropathy Diabetes mellitus, type II Surgical History S/P PICC central line placement Social History household members: spouse alcohol intake: current Assessment & Plan Assessment & Plan narrative: 1. Bacteremia (culture from [facility]) with diabetic foot ulcer and underlying osteomyelitis. A 2. Uix-vkofsfb-jjwevjran diabetes. Hold home metformin. Monitor glucose with subcu insulin. PLAN: Continue antibiotics. Wound cx with [facility]PC, final pending. MRI of footconsistent with osteomyelitis Orthopedics consult PICC for home IV Abx (4-6 weeks) Will call Infectious Disease after cultures finalize for their involvement. Anticipate discharge likely on Tuesday, March 18. Home with IV antibiotics, outpatient podiatry follow up. Outpatient Infectious Disease follow up. DVT prophylaxis SCDs for now CODE STATUS full code. Time-Based Coding :: [TOTAL MINUTES] spent with patient and on the chart (including review of chart, obtaining history, exam, reviewing outside data, placing orders, documenting exam and treatment plan, and counseling patient) on [DATE].
[2025-03-16 08:51] VITALS: BP 113/71; PULSE 77; RESP 10; TEMP 36.2; O2SAT 98
--- NOTE | 2025-03-16 10:02 | PM.CN.IH.1 ---
History of Present Illness Consult details Chief complaint: pcp tuesday [place], staff infection Narrative: CHIEF COMPLAINT I felt a sharp pain in my foot Tuesday on my way to work and saw it looked like a blister was forming. SUBJECTIVE The patient reports a new wound on the right foot, located on the plantar aspect at the first metatarsophalangeal joint. He describes experiencing a sharp pain in the foot on Tuesday while en route to work, followed by the appearance of what seemed to be a blister. He reports intact sensation throughout the foot and good perfusion distally in the toes. The patient denies any previous similar wounds on the same foot but mentions a previous wound on the other side, specifically on the bone of the right foot. The patient is currently receiving IV antibiotics at the hospital. He reports his maximum temparature was around 99?F. He attributes the development of the wound potentially to the insoles he has been using, which he feels do not properly support his foot, particularly in dense areas. He changes out his insoles every three months. SOCIAL HISTORY [place] sustain [place]. PERTINENT PMH - Diabetes Mellitus Type 2 PRIOR HIP/KNEE PROCEDURES None PHYSICAL EXAM Right Foot Exam: - Examination: Pinpoint ulceration in the plantar aspect of the foot at the first MCP joint with expressible purulence. No other wounds noted elsewhere in the foot. - Neurologic: Intact sensation throughout the foot. - Vascular: Good perfusion distally in the toes. RADIOLOGY MRI Foot - 1.?Ulceration?involving?plantar?aspect?of?great?toe?at?the?level?of?1st?MTP?joint?with?cellulitis?in?forefoot?soft?tissue.??No?discrete?drainable?abscess?collection.??Mild?myositis?in?visualized?plantar?foot?muscles?without?intramuscular?fluid?collec tion. 2.?Finding?is?concerning?for?osteomyelitis?involving?medial?and?lateral?sesamoid?bones?of?1st?metatarsal?head LABS Purportedly had a positive blood culture at the outside facility. ASSESSMENT The patient presents with a diabetic foot ulcer on the plantar aspect of the right foot PLAN Patient already started on IV antibiotics. The wound is on the plantar aspect of his foot and not associated with a drainable abscess on MRI. The wound is a pinpoint hole currently which is actively draining. Taking him to the OR would enlarge the wound in a high pressure area. There is no simple amputation that can be performed in that area and in the absence of osteomyelitis of the hallux I am hopeful this can be avoided. There is questionable osteomyelitis of the sesamoid bones which could be excised however that has functional consequences given their impact on tendon function. Overall, I do not see any clear need for acute surgical debridement. It will require ongoing podiatric management on an outpatient basis once an antibiotic regimen has been initiated. Before that can be initiated it needs to be resolved whether he was in fact bacteremic on presentation. He is nontoxic appearing and has reassuring labs presently. Will continue coordination with internists. Meds Home Medications and Allergies Home Medications ?Medication ?Instructions ?Recorded ?Confirmed ?Type metformin 1,000 mg tablet 1,000 mg PO DAILY 05/21/20 03/15/25 History risankizumab-rzaa 150 mg/mL 150 mg SUBCUT Q12W 03/15/25 03/15/25 History subcutaneous syringe (Skyrizi) tirzepatide 10 mg/0.5 mL 10 mg SUBCUT WEEKLY 03/15/25 03/15/25 History subcutaneous pen injector (Mounjaro) Allergies Allergy/AdvReac Type Severity Reaction Status Date / Time No Known Drug Allergies Allergy Verified 03/14/25 18:09 Exam Vital Signs (past 8 hours): - 03/16/25 08:51 Temperature 97.2 F L Pulse Rate 77 Respiratory Rate 10 L Blood Pressure 113/71 Pulse Oximetry 98 Oxygen Delivery Method Room Air Oxygen Flow Rate 0 Objective Labs 03/15/25 06:37 03/15/25 06:37 [facility] Medical History Charcot's joint of foot Diabetic foot ulcer with osteomyelitis Diabetic foot ulcers Neuropathy Diabetes mellitus, type II Surgical History S/P PICC central line placement Social History household members: spouse Tobacco & Substance Use alcohol intake: current Assessment & Plan Assessment and plan (1) Diabetic foot ulcers: Status: Acute Time-Based Coding :: [TOTAL MINUTES] spent with patient and on the chart (including review of chart, obtaining history, exam, reviewing outside data, placing orders, documenting exam and treatment plan, and counseling patient) on [DATE]. PROFEE Charge Codes Inpatient or Observation consultation: 36021
[2025-03-16 12:00] VITALS: BP 126/75; PULSE 81; RESP 15; TEMP 36.3; O2SAT 99
[2025-03-16] MEDS: VANCOMYCIN TROUGH 1 REQUEST MISC (13:19)
[2025-03-16 13:40] LABS: Vancomycin Trough 12.7 ug/mL (10-20)
[2025-03-16 15:08] LABS: MRSA (Nasal) PCR NOT DETECTED (Not Detect)
[2025-03-16 20:57] VITALS: BP 132/76; PULSE 84; RESP 19; TEMP 36.4; O2SAT 99
[2025-03-17] MEDS: VANCOMYCIN 2,000 MG/400 ML PIGGYBACK 200 MG IV ×2 (01:00→13:56)
[2025-03-17] MEDS: PIPERACILLIN/TAZO 3.375 GM in SODIUM CHLORIDE 0.9% 100 ML IV ×3 (01:59→18:23)
[2025-03-17 08:00] VITALS: BP 116/78; PULSE 75; RESP 16; TEMP 36.6; O2SAT 97
--- NOTE | 2025-03-17 08:20 | P.PN_ITS ---
Subjective Subjective Interval history: Summary: 44-year-old male with a diabetic foot infection. This began as a blister, this was uncapped and now has drainage. Imaging with MRI is consistent with osteomyelitis. He was in [place], with his . Orthopedics is involved, recommending IV antibiotics for several weeks as well as Podiatry consultation. The patient has had IV antibiotics at home in Tuesday before with infusion solutions. Hospital course: 03/16: Stable and receiving IV antibiotics. Wound cultures with Gram-positive cocci. S: He is doing well, no foot pain. There is no active drainage since his day of arrival. Exam Vital Signs (past 8 hours): Oxygen Delivery Method Room Air Oxygen Flow Rate 0 Narrative Exam Narrative: NAD, alert and oriented. Fluent speech. Lungs are clear, normal rate and effort. Heart is regular, no murmur gallop or rub. Abdomen is soft, non distended. Extremities are free of edema. Left foot, there is a closed wound at the ball of the foot with no active draining. Objective Imaging MRI foot: : Radiologist's impression: MRI foot: : Radiologist's impression: 1. Ulceration involving plantar aspect of great toe at the level of 1st MTP joint with cellulitis in forefoot soft tissue. No discrete drainable abscess collection. Mild myositis in visualized plantar foot muscles without intramuscular fluid collection. 2. Finding is concerning for osteomyelitis involving medial and lateral sesamoid bones of 1st metatarsal head. 3. Likely contusion involving navicular bone , medial and middle sesamoid bones. Mild midfoot and forefoot joint osteoarthritis as above. No acute fracture or dislocation. Labs 03/15/25 06:37 03/15/25 06:37 Labs: Laboratory Results - last 24 hr 03/16/25 03/16/25 12:37 13:13 Nasal Screen MRSA (PCR) Not detected Vancomycin Trough 12.7 PFSH Medical History Charcot's joint of foot Diabetic foot ulcer with osteomyelitis Diabetic foot ulcers Neuropathy Diabetes mellitus, type II Surgical History S/P PICC central line placement Social History household members: spouse alcohol intake: current Assessment & Plan Assessment & Plan narrative: 1. Bacteremia (culture from Tuesday) with diabetic foot ulcer and underlying osteomyelitis. There is a question of positive blood culture and [place] which sounds like this is 1 of 1. Cultures here were negative. Whether or not the patient was bacteremic as a moot point, repeat cultures are negative. The patient will be on extended antibiotics will which we will exceed a 14 day course regardless. 2. Wmd-gdpembp-rqweidgga diabetes. Hold home metformin. Monitor glucose with subcu insulin. PLAN: Continue antibiotics. Wound cx with GPC, final pending. MRI of footconsistent with osteomyelitis Orthopedics consult PICC for home IV Abx (4-6 weeks) Will call Infectious Disease after cultures finalize for their involvement. Anticipate involvement with Infectious Disease on Tuesday when cultures are back for antibiotic plan. Anticipate outpatient follow up with [facility] and outpatient follow up with Podiatry which could either be Dr. Navas in [facility] or [facility]. Anticipate discharge likely on Tuesday, March 18. Home with IV antibiotics. Time-Based Coding :: [TOTAL MINUTES] spent with patient and on the chart (including review of chart, obtaining history, exam, reviewing outside data, placing orders, documenting exam and treatment plan, and counseling patient) on [DATE].
--- NOTE | 2025-03-17 14:28 | CM.DPNOTE ---
DCP note AUDIOLOGY ASSISTANT reviewed EMR per provider in morning round, final cultures still pending. likely will need 4-6 weeks IV abx. hx of infusion solutions. likely non MRSA. PICC placed for tomorrow. AUDIOLOGY ASSISTANT faxed initial clinicals to [facility]. spoke with main desk, will pass along referral to [facility] Tuesday. P: pending final cultures, will need continued coordination with Inf sathish. need which provider is following ABX. return to Tuesday [facility] with spouse when abx coordinated. MIGDALIA Guerra
[2025-03-17 20:00] VITALS: BP 101/77; PULSE 81; RESP 19; TEMP 36.1; O2SAT 98
[2025-03-18] MEDS: VANCOMYCIN 2,000 MG/400 ML PIGGYBACK 200 MG IV ×2 (00:35→14:33)
[2025-03-18] MEDS: PIPERACILLIN/TAZO 3.375 GM in SODIUM CHLORIDE 0.9% 100 ML IV ×3 (02:20→18:16)
[2025-03-18 08:00] VITALS: BP 118/73; PULSE 78; RESP 18; TEMP 36.6; O2SAT 99
--- NOTE | 2025-03-18 11:20 | DI.ECHO.S_ITS ---
[facility] +---------+ [facility] : : [address] : : [place] : : [id number] : : Phone: [phone] Echocardiogram Report + + :Name: DURGA HARDING Study Date: 03/18/2025 Height: 72 in : :Hospital ReadingLocation: Weight: 251 lb : : Gender: Male BSA: 2.3 m2 : :: 1980 Age: 44 yrs BP: 118/73 mmHg: :Reason For Study: STAPH BACTEREMIA : :Ordering Physician: REINA, : :SUMI VALENTINE Performed By: Anna Quintero : :Referring: SUMI HUANG : + + Interpretation Summary The ejection fraction is estimated to be 60-65%. Diastolic parameters suggest probable normal left ventricular diastolic function and normal filling pressures. The right ventricle is normal in size and function. Pulmonary artery pressures cannot be estimated because of the lack of a measurable TR jet velocity. No significant valvular abnormality appreciated. Procedure: A two-dimensional transthoracic echocardiogram with color flow and Doppler was performed. The study quality was technically difficult. There is no prior echocardiogram noted for this patient. A contrast injection of Definity was performed to improve assessment of LV function. The patient was in sinus rhythm with heart rates between 79-86 bpm during the exam. Left Ventricle: The left ventricle is normal in size and wall thickness. The ejection fraction is estimated to be 60-65%. There are no obvious focal wall motion abnormalities noted but poor endocardial definition reduces the sensitivity for the detection of such. Diastolic parameters suggest probable normal left ventricular diastolic function and normal filling pressures. Right Ventricle: The right ventricle is normal in size and function. Atria: The left atrial size is normal. Right atrial size is normal. There is no Doppler evidence for an interatrial shunt. Mitral Valve: The mitral valve leaflets appear to open well. There is no mitral regurgitation noted. Aortic Valve: The aortic valve is trileaflet. The aortic valve opens well. There is no aortic valve stenosis. No aortic regurgitation is present. Tricuspid Valve: The tricuspid valve leaflets are thin and pliable. There is mild tricuspid regurgitation. Pulmonary artery pressures cannot be estimated because of the lack of a measurable TR jet velocity. Pulmonic Valve: The pulmonic valve leaflets are thin and pliable; valve motion is normal. There is no pulmonic valvular regurgitation. Great Vessels: The aortic root is normal size. The dimensions of the ascending aorta are normal. The inferior vena cava was not well visualized. Pericardium/ Pleura There is no pericardial effusion. There is no pleural effusion. MMode/2D Measurements & Calculations LVIDd: 4.2 cm LVOT diam: 2.0 cm LVIDs: 2.8 cm Ao root diam: 2.9 cm FS: 31.7 % asc Aorta Diam: 3.0 cm IVSd: 0.97 cm Ao Arch Diam (Prox Trans): 2.5 cm LVPWd: 0.91 cm LV sheppard. diameter/BSA (cm/m^2): 1.8 LV sys. diameter/BSA (cm/m^2): 1.2 LA A2 area: 15.0 cm2 RA long axis: 4.0 cm LA A4 area: 14.7 cm2 RA area: 12.2 cm2 LA length (vol): 4.8 cm RA vol: 31.6 ml LA vol: 39.0 ml RA : 13.5 ml/m2 LA vol index: 16.6 ml/m2 RVD1 (basal): 3.3 cm RVD2 (mid): 3.0 cm TAPSE: 1.7 cm Doppler Measurements & Calculations Ao V2 max: 124.6 cm/sec LVOT Max Ravinder: 102.7 cm/sec Ao V2 mean: 92.0 cm/sec LV V1 max P.2 mmHg Ao max P.2 mmHg LV V1 VTI: 20.2 cm Ao mean P.7 mmHg CHEO(I,D): 2.5 cm2 Ao V2 VTI: 25.7 cm CHEO(V,D): 2.6 cm2 sev ratio: 0.78 CHEO indexed to BSA (cm^2/m^2): 1.1 MV E max ravinder: 72.4 cm/sec PA V2 max: 100.4 cm/sec MV A max ravinder: 67.5 cm/sec PA V2 mean: 69.1 cm/sec MV E/A: 1.1 PA mean P.1 mmHg Med Peak E' Ravinder: 8.3 cm/sec PA pr(Accel): 27.6 mmHg E/E' med: 8.8 Lat Peak E' Ravinder: 14.9 cm/sec E/E' lat: 4.8 E/e' average: 6.8 MV dec time: 0.21 sec MVA(VTI): 3.4 cm2 MV V2 mean: 53.2 cm/sec SV(LVOT): 63.6 ml MV mean P.3 mmHg MV V2 VTI: 19.0 cm Reading Physician:03:58 PM
--- NOTE | 2025-03-18 12:04 | CM.DPC ---
Addendum entered by MIGDALIA Mayer 03/18/25 15:03: ADD: Spoke to Felice at [facility] and he is planning to call pt soon and update him that he has about a $1400 deductible to meet and then insurance will cover the rest of his IV abx infusion and they are working on their RN schedule for tomorrow for bedside teach. PICC placed and faxed PICC insertion note to [facility]. Sent msg to MD to see if confirmed which ID MD to follow. BF Original Note: DCP Home Infusion Cont: Per MD, pt with positive blood cultures and bacteremia and will need 6 weeks IV Ceftriaxone 2 g at discharge and attempting to get in contact with [facility] ID MD to confirm they will accept referral and follow at d/c as pt lives on Tuesday and established with [facility]. PICC to be placed today 03/18. SW called Felice at [facility] and updated on anticipated Ceftriaxone and they will run through pt's insurance to confirm no out of pocket cost and will likely need to complete bedside teach prior to d/c since pt resides on Tuesday. Pt has hx of [facility] in 2018 and no concerns noted. SW met bedside with pt and spouse (on a work call, working remotely) and updated on above and pt confirms he is comfortable with discharge home with [facility] for ongoing IV infusion and confirms that spouse can drive and they will attempt to get Reservation but likely will need Priority Board Pass especially with medications that need refrigeration. Plan: SW to follow for PICC placement today and [facility] final review and schedule bedside teach prior to pt d/c home tomorrow 03/19. MIGDALIA Mayer
--- NOTE | 2025-03-18 13:55 | DI.RAD.S_ITS ---
PROCEDURE: XR CHEST 1V INDICATIONS: PICC line TECHNIQUE: One view of the chest was acquired. COMPARISON: [facility], CR, XR CHEST 1V, 03/14/2025, 19:31. FINDINGS: Surgical changes and devices: Left-sided PICC line tip is in SVC. Lungs and pleura: Mild pulmonary vascular congestion. No focal infiltrate. No pleural effusions or pneumothorax. Mediastinum: Mediastinal contours appear normal. Heart size is normal. Bones and chest wall: No suspicious bony lesions. Overlying soft tissues appear unremarkable. IMPRESSION: Left-sided PICC line tip is in SVC. Mild pulmonary vascular congestion. No focal infiltrate, pleural effusion or pneumothorax. Dictated by: Dhruv Dee M.D. on 03/18/2025 at 14:24 Approved by: Dhruv Dee M.D. on 03/18/2025 at 14:24
--- NOTE | 2025-03-18 17:50 | PM.PN.1 ---
Subjective Subjective Interval history: Summary: 44-year-old male with a diabetic foot infection. This began as a blister, this was uncapped and now has drainage. Imaging with MRI is consistent with osteomyelitis of the sesamoid bones. He was in Tuesday, with his . Orthopedics is involved, recommending IV antibiotics for several weeks as well as Podiatry consultation. The patient has had IV antibiotics at home in Tuesday before with [facility]. Hospital course: 03/16: Stable and receiving IV antibiotics. Wound cultures with Gram-positive cocci. 03/17: Blood cultures from Tuesday, 10/13 positive with MSSA. Discussed with ID physician at [facility], states patient had more recent treatment with Dr. Gaspar at [facility]. Will reach out to her for additional recommendations. Exam Vital Signs (past 8 hours): Oxygen Delivery Method Room Air Oxygen Flow Rate 0 Narrative Exam Narrative: NAD, alert and oriented. Fluent speech. Lungs are clear, normal rate and effort. Heart is regular, no murmur gallop or rub. Abdomen is soft, non distended. Extremities are free of edema. Left foot, there is a closed wound at the ball of the foot with no active draining. Objective Labs 03/15/25 06:37 03/15/25 06:37 [facility] Medical History Charcot's joint of foot Diabetic foot ulcer with osteomyelitis Diabetic foot ulcers Neuropathy Diabetes mellitus, type II Surgical History S/P PICC central line placement Social History household members: spouse alcohol intake: current Assessment & Plan Assessment & Plan narrative: 1. Bacteremia (culture from Tuesday) with diabetic foot ulcer and underlying L foot osteomyelitis 2. Ich-bweuuyz-wpmfukhca diabetes. Hold home metformin. Monitor glucose with subcu insulin. PLAN: - outpatient cultures reviewed, 10/13 positive cultures with MSSA. Previously followed by Dr. Gaspar at [facility], will reach out to their group for outpatient follow up. Discussed with ID provider at [facility] whom relayed the above information and was able to see cultures from Tuesday. - PICC line placed today. - f/u TTE ordered given gram + bacteremia. Repeat cultures negative 6/5. Positive culture was drawn 03/12 at [facility]. - likely ceftriaxone on discharge, pending ID recommendations noted above. - will follow up with Dr. Navas, analog design engineer as an outpatient per orthopedics for further foot management. - will check repeat labs tomorrow, likely will need bi-weekly labs with IV antibiotics. Dispo: Anticipate discharge home tomorrow, with final antibiotic recommendations per ID. Time-Based Coding :: [TOTAL MINUTES] spent with patient and on the chart (including review of chart, obtaining history, exam, reviewing outside data, placing orders, documenting exam and treatment plan, and counseling patient) on [DATE].
[2025-03-18 19:50] VITALS: BP 127/77; PULSE 84; RESP 16; TEMP 36.6; O2SAT 97
--- NOTE | 2025-03-18 19:59 | PC.NURSE ---
patient without complaints or concerns today, other than was hoping to get everything arranged to leave today. PICC was placed and patient tolerated well. ECHO completed. Patient resting comfortably in bed using his laptop and phone. Denies pain. at bedside. Moving around independently in room without difficulty, call light withinr each.
[2025-03-19] MEDS: VANCOMYCIN 2,000 MG/400 ML PIGGYBACK 200 MG IV (00:34)
[2025-03-19] MEDS: PIPERACILLIN/TAZO 3.375 GM in SODIUM CHLORIDE 0.9% 100 ML IV (02:18)
[2025-03-19 05:12] LABS: Add Manual Diff / Slide Review NO; Basophils Absolute Auto 0 /uL (0-100); Basophils Percent Auto 0.5 % (0-2); Eosinophils Absolute Auto 300 /uL (0-450); Eosinophils Percent Auto 3.7 % (2-4); Hematocrit 39.9 % (41-53); Hemoglobin 13.5 g/dL (13.5-17.5); Lymphocytes Absolute Auto 2600 /uL (1100-4500); Mean Corpuscular HGB Conc 33.9 % (30-36); Mean Corpuscular Hemoglobin 28.2 PG (26-34); Monocytes Absolute Auto 700 /uL (0-900); Monocytes Percent Auto 8.5 % (3-14); Neutrophils Absolute Auto 4500 /uL (1500-7000); Neutrophils Percent Auto 55.3 % (50-75); Platelet Count 316 X10^3/uL (150-400); Red Blood Cell Count 4.81 X10^6/uL (4.5-5.9); Red Cell Distribution Width 13.2 % (11.6-14.8); White Blood Cell Count 8.2 X10^3/uL (4.5-11.0)
[2025-03-19 05:27] LABS: Alanine Aminotransferase 14 IU/L (<50); Albumin 4.1 g/dL (3.5-5.0); Albumin Globulin Ratio 1.3 (1.0-2.8); Alkaline Phosphatase 69 U/L (38-126); Aspartate Aminotransferase 29 IU/L (17-59); BUN Creatinine Ratio 18.3 (6-22); Bilirubin Total 0.5 mg/dL (0.2-1.3); Blood Urea Nitrogen 11 mg/dL (9-20); Calcium 8.9 mg/dL (8.4-10.2); Carbon Dioxide 25 mmol/L (22-32); Chloride 105 mmol/L (98-107); Estimated Glomerular Filt Rate > 60 mL/min (>60); Globulin 3.2 g/dL (1.7-4.1); Glucose 136 mg/dL (70-99); HEMOLYSIS < 15 (0-50); Potassium 3.8 mmol/L (3.4-5.1); Sodium 138 mmol/L (137-145); Total Protein 7.3 g/dL (6.3-8.2)
[2025-03-19 05:29] LABS: C-Reactive Protein Quant < 0.5 mg/dL (<1.0); Creatine Kinase 44 U/L (55-170)
[2025-03-19 06:01] LABS: Erythrocyte Sedimentation Rate 16 MM/HR (0-15)
--- NOTE | 2025-03-19 06:34 | PC.NURSE ---
Received critical lab from lab drawn this morning: Vanco trough (24.8). Reviewed orders, vanco trough not due until 1230 this afternoon. Notified pharmacy about 0500 vanco trough, advised to disregard d/t lab being drawn too early.
[2025-03-19 06:51] LABS: Vancomycin Trough 24.8 ug/mL (10-20)
[2025-03-19 08:00] VITALS: BP 109/65; PULSE 75; RESP 16; TEMP 36.4; O2SAT 99
[2025-03-19] MEDS: CEFAZOLIN 2 GM/100 ML PREMIX 100 ML IV (10:04)
--- NOTE | 2025-03-19 10:33 | CM.DPC ---
DCP Cont. Reviewed EMR and team rounds for status updates. Worked with [facility] this am, faxed IV antibiotic script, faxed referral to [facility] for weekly PICC dressing changes and labs. [facility] will meet with pt today at 3:00pm at the hospital prior to d/c for the teaching. PUG MACHINE OPERATOR did provide pt a Priority Medical Boarding Pass for the trip home. No further CM d/c assistance needs are indicated at this time.
--- NOTE | 2025-03-19 17:45 | PM.DS.1 ---
History of Present Illness History of Present Illness Date Patient Seen: 03/19/25 Time Patient Seen: 17:46 Chief complaint: pcp tuesday [facility], staff infection Narrative: Per admitting provider, From night doctor: 44-year-old male with past medical history of ndl-buvbnal-tinmpjaxy diabetes and osteomyelitis presents with positive blood culture. Of note the patient was admitted 2 days ago at [facility] for left foot cellulitis and possible osteomyelitis. The patient was given IV antibiotics and switch over to Bactrim and Keflex at time of discharge yesterday. However the patient was contacted and notified to come into the ER due to positive blood culture. It was reported that the blood culture came back to bottles positive for gram positive cocci. It is also recommended that the patient come into our ER for further assessment of underlying osteomyelitis with possible MRI. Otherwise the patient denies any fever, chills, nausea, vomiting, diarrhea, chest pain, abdominal pain or shortness of breath. The patient states that his redness in his left foot has improved since he was started and treated with IV antibiotic 3 days ago. In the emergency room, the patient was hemodynamically stable without sign of sepsis. The patient labs were relatively benign. Chest x-ray was clear. X-ray of the left foot shows no clear sign of osteomyelitis and the recommendation of MRI if clinical suspicion is high for osteomyelitis. Orthopedic surgeon was consulted and recommended that we continue IV antibiotic and they will consult in the morning. S: The lesion has been open for 2-3 days and passing out. One blood culture was positive at [facility], 2 are pending here. No bad odor. He does have some sensation in his feet and denies pain. Discharge Providers Provider Date of admission: 03/15/25 01:29 Discharge Date: 03/19/25 Primary care physician: CRISSY Field Consults: 03/15/25 01:21 Consult to Orthopedic Surgery Stat Comment: Consulting Provider: Slim Serra Reason for consultation: osteomyelitis Has provider been notified: Yes 03/19/25 10:20 Consult to Home Health Routine Comment: Reason For Exam: qualitative researcher provider: Sukh Guerin DO Summary Hospital Course Discharge Diagnosis: 1. Bacteremia (culture from [facility]) with diabetic foot ulcer and underlying L foot osteomyelitis 2. Egm-kmkipdw-mktcptgpt diabetes. PLAN: - outpatient cultures reviewed, / positive cultures with MSSA. Previously followed by Dr. Gaspar at [facility], will reach out to their group for outpatient follow up. Discussed with ID provider at [facility] whom relayed the above information and was able to see cultures from Tuesday. - PICC line placed today. - f/u TTE ordered given gram + bacteremia. Repeat cultures negative 03/14. Positive culture was drawn 03/12 at Tuesday. - likely ceftriaxone on discharge, pending ID recommendations noted above. - will follow up with Dr. Navas, meat soaker as an outpatient per orthopedics for further foot management. - will check repeat labs tomorrow, likely will need bi-weekly labs with IV antibiotics. Dispo: Anticipate discharge home tomorrow, with final antibiotic recommendations per ID. Hospital Course: This is a 44 year old male with PMH of diabetes who presented from Tuesday after recent admission for diabetic foot infection of his left foot. Wound originated on the ball of his left foot. Wound cultures from Tuesday ultimately grew MSSA. A culture from his foot also grew MSSA here in the hospital. MRI showed evidence of osteomyelitis of his sesamoid bones. He was previously treated with [facility] infectious disease. Discussed with infectious disease whom recommended cefazolin 2g q8 hours ideally for MSSA bacteremia. This was arranged with [facility], PICC line was placed once blood cultures were negative for 48 hours. Outpatient follow up was arranged just after discharge with infectious disease provider directly and referral was faxed. Orthopedics was consulted and had the following recommendations with regards to surgical management: Patient already started on IV antibiotics. The wound is on the plantar aspect of his foot and not associated with a drainable abscess on MRI. The wound is a pinpoint hole currently which is actively draining. Taking him to the OR would enlarge the wound in a high pressure area. There is no simple amputation that can be performed in that area and in the absence of osteomyelitis of the hallux I am hopeful this can be avoided. There is questionable osteomyelitis of the sesamoid bones which could be excised however that has functional consequences given their impact on tendon function. Overall, I do not see any clear need for acute surgical debridement. It will require ongoing podiatric management on an outpatient basis once an antibiotic regimen has been initiated. Before that can be initiated it needs to be resolved whether he was in fact bacteremic on presentation. He is nontoxic appearing and has reassuring labs presently. TTE was additionally performed given his bacteremia, which showed no evdience for vegetations. Repeat blood cultures from 03/14 were negative after positiev culture 03/12 at Tuesday. Patient plans to follow up with Podiatry, Dr. Navas as noted above by orthopedics. Time Spent with Patient Time spent: Greater than 30 minutes Exam Vital Signs (past 8 hours): Oxygen Delivery Method Room Air Oxygen Flow Rate 0 Narrative Exam Narrative: NAD, alert and oriented. Fluent speech. Lungs are clear, normal rate and effort. Heart is regular, no murmur gallop or rub. Abdomen is soft, non distended. Extremities are free of edema. Left foot, there is a closed wound now at the ball of the foot with no active draining anymore (compared to wound photo) Objective Labs 03/19/25 05:00 03/19/25 05:00 Labs: Laboratory Results - last 24 hr 03/19/25 05:00 WBC 8.2 RBC 4.81 Hgb 13.5 Hct 39.9 L MCV 83.0 MCH 28.2 MCHC 33.9 RDW 13.2 Plt Count 316 Neut % (Auto) 55.3 Lymph % (Auto) 32.0 Pickett % (Auto) 8.5 Eos % (Auto) 3.7 Baso % (Auto) 0.5 Neut # (Auto) 4500 Lymph # (Auto) 2600 Pickett # (Auto) 700 Eos # (Auto) 300 Baso # (Auto) 0 ESR 16 H Sodium 138 Potassium 3.8 Chloride 105 Carbon Dioxide 25 BUN 11 Creatinine 0.60 L Estimated GFR > 60 BUN/Creatinine Ratio 18.3 Glucose 136 H Calcium 8.9 Total Bilirubin 0.5 AST 29 ALT 14 Alkaline Phosphatase 69 Total Creatine Kinase 44 L C-Reactive Protein < 0.5 Total Protein 7.3 Albumin 4.1 Globulin 3.2 Albumin/Globulin Ratio 1.3 Vancomycin Trough 24.8 H* [facility] Medical History Charcot's joint of foot Diabetic foot ulcer with osteomyelitis Diabetic foot ulcers Neuropathy Diabetes mellitus, type II Surgical History S/P PICC central line placement Social History household members: spouse alcohol intake: current Discharge Plan Discharge Plan Patient Disposition: Home Provider Discharge Comment: You were admitted to the hospital with Left foot infection. Need likely 6 weeks of antibiotics. Expect a call from infectious disease office. Discharge orders & Medications Prescriptions: New cefazolin 2 gram recon soln 500 mg IV Q8H 35 Days Qty: 35 0RF Continued metformin 1,000 mg Tablet 1,000 mg PO DAILY Mounjaro 10 mg/0.5 mL pen injector 10 mg SUBCUT WEEKLY Patient Comments: [NO ORIGINAL SIG] Skyrizi 150 mg/mL syringe 150 mg SUBCUT Q12W Follow up/Referrals: Airam Spaulding ARNP [Primary Care Provider, Medical] Other Ambulatory Orders: Referral to: (Schedule) Timeframe: 2 Weeks Location: Determined by Patient Ordered By: Sukh Guerin Diet/Activity/Treatments Diet: Diet as Tolerated and Carb-consistent/Diabetic Activity: As tolerated no restrictions Visit Report/Discharge Packet Instructions: Osteomyelitis, DI for Osteomyelitis, Cefazolin Injection Stand Alone Forms: Patient Portal/API, Stroke Signs & Symptoms Discharge Data Primary Care Provider: Airam Spaulding
== END 2025-03-19 17:15 | disposition home or self-care (01) | DRG 638 ==
LOC: ED 03-15 01:30 → AC 03-15 01:30
PROVIDERS: Hospitalist; Internal Medicine; Admitting Provider Internal Medicine; Emergency Provider Emergency Medicine; PCP Nurse Practitioner Family; Referring Provider Emergency Medicine; Visit Provider Internal Medicine
DX: E11.621 Type 2 diabetes mellitus with foot ulcer (principal); M86.8X7 Other osteomyelitis, ankle and foot; R78.81 Bacteremia; L97.519 Non-pressure chronic ulcer of other part of right foot with unspecified severity; B95.61 Methicillin susceptible Staphylococcus aureus infection as the cause of diseases classified elsewhere; Z79.85 Long-term (current) use of injectable non-insulin antidiabetic drugs; Z79.84 Long term (current) use of oral hypoglycemic drugs
CPT/HCPCS: 36415; 36569; 71045; 73630; 73718; 80053; 80202; 81001; 82550; 82962; 83605; 83690; 84145; 85025; 85610; 85651; 85730; 86140; 87040; 87070; 87086; 87147; 87186; 87205; 87797; 93306; 96365; 96367; 99283; 99284; J0690; J1815; J2543; Q9957

== ENCOUNTER → 2025-04-30 09:24 | Outpatient (CLI) | payer OTHER, SELFPAY ==
[2025-03-15 02:57] VITALS: BMI 33.9
== END ==
LOC: WC 09:36
PROVIDERS: Family Provider Nurse Practitioner Family; PCP Nurse Practitioner Family; Referring Provider Emergency Medicine; Visit Provider Surgery
DX: E11.621 Type 2 diabetes mellitus with foot ulcer (principal); E11.42 Type 2 diabetes mellitus with diabetic polyneuropathy; L97.422 Non-pressure chronic ulcer of left heel and midfoot with fat layer exposed; M86.9 Osteomyelitis, unspecified; I10 Essential (primary) hypertension
CPT/HCPCS: 11042; 99203; 99213

== ENCOUNTER → 2025-05-08 09:21 | Outpatient (CLI) | payer OTHER, SELFPAY ==
[2025-03-15 02:57] VITALS: BMI 33.9
== END ==
LOC: WC 09:22
PROVIDERS: Family Provider Nurse Practitioner Family; PCP Nurse Practitioner Family; Referring Provider Nurse Practitioner Family; Visit Provider Surgery
DX: E11.621 Type 2 diabetes mellitus with foot ulcer (principal); L97.522 Non-pressure chronic ulcer of other part of left foot with fat layer exposed; M86.172 Other acute osteomyelitis, left ankle and foot; L84 Corns and callosities; E11.42 Type 2 diabetes mellitus with diabetic polyneuropathy
CPT/HCPCS: 11042

== ENCOUNTER → 2025-06-05 10:32 | Outpatient (CLI) | payer OTHER, SELFPAY ==
[2025-03-15 02:57] VITALS: BMI 33.9
== END ==
LOC: WC 10:38
PROVIDERS: Family Provider Nurse Practitioner Family; PCP Nurse Practitioner Family; Referring Provider Nurse Practitioner Family; Visit Provider Surgery
DX: E11.621 Type 2 diabetes mellitus with foot ulcer (principal); L97.422 Non-pressure chronic ulcer of left heel and midfoot with fat layer exposed; L84 Corns and callosities; M86.9 Osteomyelitis, unspecified; E11.40 Type 2 diabetes mellitus with diabetic neuropathy, unspecified
CPT/HCPCS: 11042; 99213

== ENCOUNTER → 2025-06-19 08:14 | Outpatient (CLI) | payer OTHER, SELFPAY ==
[2025-03-15 02:57] VITALS: BMI 33.9
== END ==
LOC: WC 08:19
PROVIDERS: Family Provider Nurse Practitioner Family; PCP Nurse Practitioner Family; Referring Provider Nurse Practitioner Family; Visit Provider Surgery
DX: E11.621 Type 2 diabetes mellitus with foot ulcer (principal); L97.522 Non-pressure chronic ulcer of other part of left foot with fat layer exposed; L08.9 Local infection of the skin and subcutaneous tissue, unspecified; L84 Corns and callosities; R23.4 Changes in skin texture; R23.3 Spontaneous ecchymoses; M86.9 Osteomyelitis, unspecified; E11.40 Type 2 diabetes mellitus with diabetic neuropathy, unspecified
CPT/HCPCS: 11042; 87070; 87077; 87147; 87186; 87205; 99213

== ENCOUNTER → 2025-06-26 08:57 | Outpatient (CLI) | payer OTHER, SELFPAY ==
[2025-03-15 02:57] VITALS: BMI 33.9
== END ==
LOC: WC 08:57
PROVIDERS: Family Provider Nurse Practitioner Family; PCP Nurse Practitioner Family; Referring Provider Nurse Practitioner Family; Visit Provider Surgery
DX: E11.621 Type 2 diabetes mellitus with foot ulcer (principal); L97.522 Non-pressure chronic ulcer of other part of left foot with fat layer exposed; M86.172 Other acute osteomyelitis, left ankle and foot; E11.42 Type 2 diabetes mellitus with diabetic polyneuropathy; L84 Corns and callosities; R23.4 Changes in skin texture
CPT/HCPCS: 11042

== ENCOUNTER → 2025-07-03 08:26 | Outpatient (CLI) | payer OTHER, SELFPAY ==
[2025-03-15 02:57] VITALS: BMI 33.9
== END ==
LOC: WC 08:26
PROVIDERS: Family Provider Nurse Practitioner Family; PCP Nurse Practitioner Family; Referring Provider Nurse Practitioner Family; Visit Provider Surgery
DX: E11.621 Type 2 diabetes mellitus with foot ulcer (principal); L97.522 Non-pressure chronic ulcer of other part of left foot with fat layer exposed; L84 Corns and callosities; M86.172 Other acute osteomyelitis, left ankle and foot; E11.42 Type 2 diabetes mellitus with diabetic polyneuropathy; R23.4 Changes in skin texture
CPT/HCPCS: 11042; 99213

== ENCOUNTER → 2025-07-17 08:59 | Outpatient (CLI) | payer OTHER, SELFPAY ==
[2025-03-15 02:57] VITALS: BMI 33.9
== END ==
LOC: WC 09:00
PROVIDERS: Family Provider Nurse Practitioner Family; PCP Nurse Practitioner Family; Referring Provider Nurse Practitioner Family; Visit Provider Surgery
DX: E11.621 Type 2 diabetes mellitus with foot ulcer (principal); L97.522 Non-pressure chronic ulcer of other part of left foot with fat layer exposed; L84 Corns and callosities; M86.172 Other acute osteomyelitis, left ankle and foot; E11.40 Type 2 diabetes mellitus with diabetic neuropathy, unspecified; E11.610 Type 2 diabetes mellitus with diabetic neuropathic arthropathy
CPT/HCPCS: 11042

== ENCOUNTER → 2025-07-24 08:50 | Outpatient (CLI) | payer OTHER, SELFPAY ==
[2025-03-15 02:57] VITALS: BMI 33.9
== END ==
LOC: WC 08:50
PROVIDERS: Family Provider Nurse Practitioner Family; PCP Nurse Practitioner Family; Referring Provider Nurse Practitioner Family; Visit Provider Surgery
DX: E11.621 Type 2 diabetes mellitus with foot ulcer (principal); E11.42 Type 2 diabetes mellitus with diabetic polyneuropathy; L97.422 Non-pressure chronic ulcer of left heel and midfoot with fat layer exposed; L84 Corns and callosities; M86.9 Osteomyelitis, unspecified
CPT/HCPCS: 11042

== ENCOUNTER → 2025-07-31 16:26 | Outpatient (CLI) | payer OTHER, SELFPAY ==
[2025-03-15 02:57] VITALS: BMI 33.9
== END ==
LOC: WC 16:27
PROVIDERS: Family Provider Nurse Practitioner Family; PCP Nurse Practitioner Family; Referring Provider Nurse Practitioner Family; Visit Provider Surgery
DX: E11.621 Type 2 diabetes mellitus with foot ulcer (principal); L97.522 Non-pressure chronic ulcer of other part of left foot with fat layer exposed; M86.172 Other acute osteomyelitis, left ankle and foot; L84 Corns and callosities; E11.42 Type 2 diabetes mellitus with diabetic polyneuropathy
CPT/HCPCS: 11042; 99213

== ENCOUNTER → 2025-08-07 08:54 | Outpatient (CLI) | payer OTHER, SELFPAY ==
[2025-03-15 02:57] VITALS: BMI 33.9
== END ==
LOC: WC 08:55
PROVIDERS: Family Provider Nurse Practitioner Family; PCP Nurse Practitioner Family; Referring Provider Nurse Practitioner Family; Visit Provider Surgery
DX: E11.621 Type 2 diabetes mellitus with foot ulcer (principal); L97.522 Non-pressure chronic ulcer of other part of left foot with fat layer exposed; L84 Corns and callosities; E11.40 Type 2 diabetes mellitus with diabetic neuropathy, unspecified; E11.610 Type 2 diabetes mellitus with diabetic neuropathic arthropathy; M86.9 Osteomyelitis, unspecified
CPT/HCPCS: 11042

== ENCOUNTER → 2025-09-13 09:20 | Outpatient (CLI) | payer OTHER, SELFPAY ==
[2025-03-15 02:57] VITALS: BMI 33.9
== END ==
LOC: WC 09:50
PROVIDERS: Family Provider Nurse Practitioner Family; PCP Nurse Practitioner Family; Referring Provider Nurse Practitioner Family; Visit Provider Physician Assistant
DX: E11.621 Type 2 diabetes mellitus with foot ulcer (principal); L97.522 Non-pressure chronic ulcer of other part of left foot with fat layer exposed; E11.40 Type 2 diabetes mellitus with diabetic neuropathy, unspecified; I10 Essential (primary) hypertension; Z72.0 Tobacco use
CPT/HCPCS: 11042; 87070; 87075; 87077; 87147; 87186; 87205; 99214

== ENCOUNTER → 2025-09-18 13:50 | Outpatient (CLI) | payer OTHER, SELFPAY ==
[2025-03-15 02:57] VITALS: BMI 33.9
== END ==
LOC: WC 13:50
PROVIDERS: Family Provider Nurse Practitioner Family; PCP Nurse Practitioner Family; Referring Provider Nurse Practitioner Family; Visit Provider Surgery
DX: E11.621 Type 2 diabetes mellitus with foot ulcer (principal); E11.42 Type 2 diabetes mellitus with diabetic polyneuropathy; L97.522 Non-pressure chronic ulcer of other part of left foot with fat layer exposed; R60.0 Localized edema; M86.9 Osteomyelitis, unspecified
CPT/HCPCS: 11042

== ENCOUNTER → 2025-09-26 08:27 | Outpatient (CLI) | payer OTHER, SELFPAY ==
[2025-03-15 02:57] VITALS: BMI 33.9
== END ==
LOC: WC 08:27
PROVIDERS: Family Provider Nurse Practitioner Family; PCP Nurse Practitioner Family; Referring Provider Nurse Practitioner Family; Visit Provider Surgery
DX: E11.621 Type 2 diabetes mellitus with foot ulcer (principal); E11.42 Type 2 diabetes mellitus with diabetic polyneuropathy; L97.522 Non-pressure chronic ulcer of other part of left foot with fat layer exposed; R60.0 Localized edema; M86.9 Osteomyelitis, unspecified
CPT/HCPCS: 11042

== ENCOUNTER → 2025-10-09 08:39 | Outpatient (CLI) | payer OTHER, SELFPAY ==
[2025-03-15 02:57] VITALS: BMI 33.9
== END ==
LOC: WC 08:52
PROVIDERS: Family Provider Nurse Practitioner Family; PCP Nurse Practitioner Family; Referring Provider Nurse Practitioner Family; Visit Provider Surgery
DX: E11.621 Type 2 diabetes mellitus with foot ulcer (principal); E11.42 Type 2 diabetes mellitus with diabetic polyneuropathy; L97.522 Non-pressure chronic ulcer of other part of left foot with fat layer exposed; R60.0 Localized edema; M86.9 Osteomyelitis, unspecified
CPT/HCPCS: 11042